=== PATIENT | male | born 1940 | race Caucasian/White ===

== ENCOUNTER 2017-10-17 08:51 | Inpatient (IN) | payer MEDICARE, OTHER ==
[2017-10-17] MEDS ORDERED: Sodium Chloride 0.9% 10 ML Syringe FLUSH PRN ×2 (09:07→11:59)
--- NOTE | 2017-10-17 09:09 | EDM.PDOC ---
ED HPI GENERAL MEDICAL PROBLEM - General Chief Complaint: Respiratory Problem Stated Complaint: BREATHING PROBLEMS Time Seen by Provider: 10/17/17 09:05 Source of Information: Reports: Patient History Limitations: Reports: No Limitations - History of Present Illness INITIAL COMMENTS - FREE TEXT/NARRATIVE: Patient comes into the emergency department with complaint of shortness of breath for 2 days. Patient has a long-standing history of congestive heart failure and hypertension. She is on home O2 does have a PICC line and receiving dobutamine daily injection. Patient states 2 days ago he was seen in the clinic and his Lasix was increased from 20 mg 3 times a day to 20 mg 4 times a day. Does not feel the increase in Lasix has helped his shortness of breath she is progressively got short of breath over the last 2 days. He has been taking her medication as prescribed by his primary care Dr. Mcarthur. He is on home oxygen but has noticed becoming more short of breath even while having supplemental oxygen. He denies Chest pain, dizziness, n/v, diarrhea, urinary concerns, or vision changes. Onset: Gradual Severity: Moderate Improves with: Reports: Immobilization Worsens with: Reports: Movement - Related Data Allergies Allergy/AdvReac Type Severity Reaction Status Date / Time No Known Allergies Allergy Verified 10/17/17 09:11 Home Meds: Home Meds Aspirin [Key Chewable Aspirin] 81 mg PO DAILY 10/31/14 [History] Docusate Sodium [Colace] 100 mg PO DAILY PRN 10/31/14 [History] Sennosides/Docusate Sodium [Senna-Docusate Sodium] 1 tab PO BID PRN 10/31/14 [ History] Albuterol [IJD: Albuterol HFA] 1 gm INH Q4H PRN #1 inhaler 04/01/16 [Rx] Tiotropium [Spiriva HandiHaler] 18 mcg INH DAILY #30 cap 04/01/16 [Rx] Levothyroxine 50 mcg PO ACBREAKFAST 12/18/16 [History] Omeprazole 20 mg PO DAILY PRN 12/18/16 [History] Midodrine 5 mg PO TID 06/30/17 [History] Potassium Chloride [Klor-Con M20] 20 meq PO DAILY 06/30/17 [History] Torsemide [Demadex] 20 mg PO ASDIRECTED 06/30/17 [History] predniSONE [Prednisone] 10 mg PO DAILY 10/17/17 [History] Past Medical History HEENT History: Reports: Cataract Cardiovascular History: Reports: CAD, Cardiomyopathy, Heart Failure, High Cholesterol, Hypertension, [place] Other Cardiovascular History: V TACH, Gastrointestinal History: Reports: Other (See Below) Other Gastrointestinal History: N & V, EARLY SATIETY, WEIGHT LOSS, Genitourinary History: Reports: Urinary Incontinence Other Genitourinary History: occassional Musculoskeletal History: Reports: Gout, Osteoarthritis Neurological History: Reports: None Hematologic History: Reports: Other (See Below) Other Hematologic History: VIT D DEF, Oncologic (Cancer) History: Reports: Prostate Dermatologic History: Reports: Other (See Below) Other Dermatologic History: roseaca - Past Surgical History Cardiovascular Surgical History: Reports: AICD, Coronary Artery Bypass GI Surgical History: Reports: Hernia, Abdominal Social & Family History - Caffeine Use Caffeine Use: Reports: Coffee ED ROS GENERAL - Review of Systems Review Of Systems: See Below Constitutional: Reports: No Symptoms HEENT: Reports: No Symptoms Respiratory: Reports: Shortness of Breath, Cough. Denies: Pleuritic Chest Pain , Sputum Cardiovascular: Reports: Dyspnea on Exertion, Edema. Denies: Blood Pressure Problem, Claudication, Lightheadedness, Orthopnea, Palpitations Endocrine: Reports: No Symptoms GI/Abdominal: Reports: No Symptoms : Reports: No Symptoms Musculoskeletal: Reports: No Symptoms Skin: Reports: No Symptoms Neurological: Reports: No Symptoms Psychiatric: Reports: No Symptoms Hematologic/Lymphatic: Reports: No Symptoms Immunologic: Reports: No Symptoms ED EXAM, GENERAL - Physical Exam Exam: See Below Exam Limited By: No Limitations General Appearance: Alert, WD/WN, No Apparent Distress Nose: Normal Inspection, Normal Mucosa Throat/Mouth: Normal Inspection, Normal Lips Head: Atraumatic, Normocephalic Neck: Normal Inspection, Supple, Non-Tender Respiratory/Chest: No Respiratory Distress, No Accessory Muscle Use, Decreased Breath Sounds, Crackles Cardiovascular: Tachycardia, Gallop/S4 Peripheral Pulses: 2+: Posterior Tibial (L), Posterior Tibial (R), 3+: Radial (L ), Radial (R) GI/Abdominal: Normal Bowel Sounds, Soft, Non-Tender, No Distention, No Abnormal Bruit Back Exam: Normal Inspection, Full Range of Motion Extremities: Normal Inspection, Normal Range of Motion Neurological: Alert, Oriented, Normal Gait Skin Exam: Warm, Dry, Intact, Normal Color, No Rash Lymphatic: No Adenopathy Course - Vital Signs Last Recorded V/S: Last Vital Signs Temp 36.0 C 10/17/17 11:20 Pulse 118 H 10/17/17 11:20 Resp 20 10/17/17 11:20 BP 107/87 10/17/17 11:20 Pulse Ox 96 10/17/17 11:20 - Orders/Labs/Meds Orders: Active Orders 24 hr Category Date Time Status Admission Status [Patient Status] [ADT] Routine ADT 10/17/17 11:32 Ordered EKG Documentation Completion [RC] STAT Care 10/17/17 09:07 Active Chest 2V [CR] Stat Exams 10/17/17 09:08 Taken Sodium Chloride 0.9% [Saline Flush] Med 10/17/17 09:07 Active 10 ml FLUSH ASDIRECTED PRN Peripheral IV Insertion Adult [OM.PC] Stat Oth 10/17/17 09:07 Ordered Medication Orders Sodium Chloride (Saline Flush) 10 ml FLUSH ASDIRECTED PRN PRN Reason: Keep Vein Open Labs: Laboratory Tests 10/17/17 10/17/17 10/17/17 Range/Units 09:25 09:25 09:30 WBC 10.1 H (4.0-10.0) x10^3/uL RBC 4.41 L (4.5-6.0) x10^6/uL Hgb 14.0 (14.0-18.0) g/dL Hct 42.3 (40.0-52.0) % MCV 95.9 H D (78.0-93.0) fL MCH 31.7 (26.0-32.0) pg MCHC 33.1 (32.0-36.0) g/dL RDW Coeff of Lorie 18.1 H (10.0-15.0) % Plt Count 155 D (130-400) x10^3/uL Add Manual Diff Yes Neutrophils % (Manual) 82 H (50-80) % Band Neutrophils % 3 (0-6) % Lymphocytes % (Manual) 8 L (25-50) % Monocytes % (Manual) 1 L (2-11) % Eosinophils % (Manual) 1 (0-4) % Metamyelocytes % 2 H (0) % Myelocytes % 2 H (0) % Blast Cells % 1 H (0) % Nucleated RBCs 1 (0-5) /100WBC Platelet Estimate Adequate Anisocytosis 1+ slight H Sodium 140 (136-145) mmol/L Potassium 4.0 (3.5-5.1) mmol/L Chloride 102 (98-107) mmol/L Carbon Dioxide 25 (21-32) mmol/L Anion Gap 17.0 (10-20) mmol/L BUN 34 H (7-18) mg/dL Creatinine 1.6 H (0.70-1.30) mg/dL Est Cr Clr Drug Dosing TNP Estimated GFR (MDRD) 42 Glucose 186 H (74-106) mg/dL Calcium 8.4 L (8.5-10.1) mg/dL Corrected Calcium 8.72 (8.5-10.1) mg/dL Total Bilirubin 1.1 H (0.2-1.0) mg/dL AST 36 (15-37) U/L ALT 51 (16-63) U/L Alkaline Phosphatase 96 (46-116) U/L POC Troponin I 0.17 H* (0.00-0.08) ng/mL NT-Pro-B Natriuret Pep 22516 H (<=450) pg/mL Total Protein 7.1 (6.4-8.2) g/dL Albumin 3.6 (3.4-5.0) g/dL Globulin 3.5 Albumin/Globulin Ratio 1.03 POC Result Comm Called critical res Meds: Medications Generic Name Dose Route Start Last Admin Trade Name Freq PRN Reason Stop Dose Admin Sodium Chloride 10 ml 10/17/17 09:07 Saline Flush FLUSH ASDIRECTED PRN Keep Vein Open Discontinued Medications Generic Name Dose Route Start Last Admin Trade Name Freq PRN Reason Stop Dose Admin Furosemide 40 mg 10/17/17 09:40 10/17/17 09:57 Lasix IV 10/17/17 09:41 40 mg ONETIME ONE Administration Departure - Departure Time of Disposition: 11:35 Disposition: Admitted As Inpatient 67 Clinical Impression: SOB (shortness of breath) CHF exacerbation Qualifiers: Heart failure type: combined systolic and diastolic Qualified Code(s): I50.43 - Acute on chronic combined systolic (congestive) and diastolic (congestive) heart failure - Discharge Information Referrals: Belkys Mcarthur DO [Primary Care Provider] - Forms: ED Department Discharge - My Orders Last 24 Hours: My Active Orders 10/17/17 09:07 EKG Documentation Completion [RC] STAT Sodium Chloride 0.9% [Saline Flush] 10 ml FLUSH ASDIRECTED PRN Peripheral IV Insertion Adult [OM.PC] Stat 10/17/17 09:08 Chest 2V [CR] Stat 10/17/17 11:32 Admission Status [Patient Status] [ADT] Routine - Assessment/Plan Last 24 Hours: My Active Orders 10/17/17 09:07 EKG Documentation Completion [RC] STAT Sodium Chloride 0.9% [Saline Flush] 10 ml FLUSH ASDIRECTED PRN Peripheral IV Insertion Adult [OM.PC] Stat 10/17/17 09:08 Chest 2V [CR] Stat 10/17/17 11:32 Admission Status [Patient Status] [ADT] Routine Assessment:: 1. increase shortness of breath Plan: 1. Labs completely ER results reviewed with patient and family 2. EKG completed results reviewed with patient and family 3. 40 mg IV Lasix was given in the ER 4. Abnormal labs showing patient's in worsening heart failure. Did contact Dr. Robert for possible admission into the acute care setting. Pt will be transferred to the medical floor for further medical management 5. Patient is hesitant for admission because a 50th anniversary libertarian him and his are hosting tomorrow. However he is agreement at this point
[2017-10-17] MEDS ORDERED: Furosemide 40 MG/4 ML VIAL IV ONE ×2 (09:40→15:13)
[2017-10-17 10:02] LABS: CHLORIDE,CL 102 mmol/L (98-107); SODIUM,NA 140 mmol/L (136-145)
[2017-10-17] MEDS ORDERED: Omeprazole 20 MG Cap.CR PO PRN (15:05)
[2017-10-17] MEDS ORDERED: Acetaminophen 325 MG Tab PO PRN ×2 (15:05→15:38)
[2017-10-17] MEDS ORDERED: Docusate Sodium 100 MG Cap PO PRN (15:05)
--- NOTE | 2017-10-17 16:11 | PCM.HP ---
H&P History of Present Illness - General Date of Service: 10/17/17 Admit Problem/Dx: Admission Diagnosis/Problem Admission Diagnosis/Problem CHF, Congestive heart failure Source of Information: Patient History Limitations: Reports: No Limitations - History of Present Illness Initial Comments - Free Text/Narative: History of present illness Patient is a 77-year-old male who has been followed by Dr. Belkys Mcarthur locally. He has seen Dr. Barboza of [facility] and he has also been following with [facility] congestive heart failure clinic. Patient has had coronary artery disease and heart failure since he was 66 when he had bypass surgery. Patient states that he was seen [facility] about 6 months ago and then just a few weeks ago. He has an implanted defibrillator and pacemaker. Reportedly his ejection fraction was 5% in 2017. After medication adjustment at the [facility], reportedly his ejection fraction went up to 15% and patient started gaining weight. Patient states that he wean about 160 at the end of 2017 and now is up to over 200. Patient states that he has been unable to climb stairs since last summer. He can walk around his yard but has to stop twice. This past week he has had orthopnea and PND, leg swelling and abdominal bloating. Patient increased his Demadex from 60 twice a day to 80 twice a day but this has not helped. Patient came to the emergency room because of shortness of breath. His records are not present for review from the [facility] they have been requested. Patient states that he has never had any chest pain he just "didn't feel well at the time his heart attacks. Have spells of dizziness which went away after he had his implantanted defibrillator. He doesn't think he had dizziness lately but he has felt that his heart has been going fast sometimes . Patient also has been having some periods of cold sweats which are unrelated to activity or, fast heartbeat or chest pain . Previous medical history COPD Remote prostate cancer treated with surgery 12 years ago History of smoking History of pneumonia in 2017 Left eye vitrectomy Umbilical hernia and inguinal hernia surgery Habits: Does not smoke drinks beer infrequently Family history: Remarkable Social history: Patient is retired, lives with his , has 2 children, his extended family and present for their 50 anniversary - Related Data Allergies/Adverse Reactions: Allergies Allergy/AdvReac Type Severity Reaction Status Date / Time No Known Allergies Allergy Verified 10/17/17 09:11 Home Medications: Home Meds Aspirin [Key Chewable Aspirin] 81 mg PO DAILY 10/31/14 [History] Docusate Sodium [Colace] 100 mg PO DAILY PRN 10/31/14 [History] Sennosides/Docusate Sodium [Senna-Docusate Sodium] 1 tab PO BID PRN 10/31/14 [ History] Albuterol [IJD: Albuterol HFA] 1 gm INH Q4H PRN #1 inhaler 04/01/16 [Rx] Tiotropium [Spiriva HandiHaler] 18 mcg INH DAILY #30 cap 04/01/16 [Rx] Levothyroxine 50 mcg PO ACBREAKFAST 12/18/16 [History] Omeprazole 20 mg PO DAILY PRN 12/18/16 [History] Midodrine 5 mg PO TID 06/30/17 [History] Potassium Chloride [Klor-Con M20] 20 meq PO DAILY 06/30/17 [History] Torsemide [Demadex] 60 mg PO BID@06/30/17 [History] Acetaminophen [Tylenol] 650 mg PO Q6H PRN 10/17/17 [History] Cholecalciferol (Vitamin D3) [Vitamin D3] 1,000 units PO DAILY 10/17/17 [History ] DOBUTamine/Dextrose 5%-Water [DOBUTamine in D5W 250 MG/250 ML] 250 mg IV DAILY@ 18 10/17/17 [History] Ipratropium [Atrovent 0.06% Nasal [place]] 2 sprays MARGARITO TID 10/17/17 [History] Non-Formulary Medication [NF Drug] 1 drop EYEBOTH QID 10/17/17 [History] Omeprazole Magnesium [Prilosec Otc] 20 mg PO DAILY PRN 10/17/17 [History] Thiamine [Vitamin B-1] 100 mg PO DAILY 10/17/17 [History] predniSONE [Prednisone] 10 mg PO DAILY 10/17/17 [History] Past Medical History HEENT History: Reports: Cataract Cardiovascular History: Reports: CAD, Cardiomyopathy, Heart Failure, High Cholesterol, Hypertension, [place] Other Cardiovascular History: V TACH, Gastrointestinal History: Reports: Other (See Below) Other Gastrointestinal History: N & V, EARLY SATIETY, WEIGHT LOSS, Genitourinary History: Reports: Urinary Incontinence Other Genitourinary History: occassional Musculoskeletal History: Reports: Gout, Osteoarthritis Neurological History: Reports: None Hematologic History: Reports: Other (See Below) Other Hematologic History: VIT D DEF, Oncologic (Cancer) History: Reports: Prostate Dermatologic History: Reports: Other (See Below) Other Dermatologic History: roseaca - Past Surgical History Cardiovascular Surgical History: Reports: AICD, Coronary Artery Bypass GI Surgical History: Reports: Hernia, Abdominal Social & Family History - Tobacco Use Smoking Status *Q: Unknown Ever Smoked - Caffeine Use Caffeine Use: Reports: Coffee H&P Review of Systems - Review of Systems: Review Of Systems: See Below General: Reports: Other (Has had several spells of feeling warm and cold) HEENT: Reports: No Symptoms Pulmonary: Reports: Shortness of Breath Cardiovascular: Reports: Palpitations Gastrointestinal: Reports: No Symptoms Genitourinary: Reports: No Symptoms Musculoskeletal: Reports: No Symptoms Skin: Reports: No Symptoms Psychiatric: Reports: No Symptoms Neurological: Reports: No Symptoms Hematologic/Lymphatic: Reports: No Symptoms Immunologic: Reports: No Symptoms Exam - Vital Signs Vital Signs: Last Vital Signs Temp 97.4 F 10/17/17 13:51 Pulse 110 H 10/17/17 13:51 Resp 20 10/17/17 13:51 BP 107/84 10/17/17 13:51 Pulse Ox 97 10/17/17 13:51 Weight: 218 lb 6 oz - Exam General: Alert HEENT: Conjunctiva Clear, Mucosa Moist & [place] Neck: Supple, Trachea Midline Lungs: Clear to Auscultation, Normal Respiratory Effort Cardiovascular: Regular Rate, Regular Rhythm, Gallop/S3 GI/Abdominal Exam: Normal Bowel Sounds, No Distention Back Exam: Normal Inspection Extremities: Normal Inspection, No Pedal Edema, Other (PICC site right upper arm - no redness, warmth, tenderness present) Skin: Warm, Dry Neurological: Cranial Nerves Intact Neuro Extensive - Mental Status: Alert, Oriented x3, Normal Cognition, Memory Intact Neuro Extensive - Motor, Sensory, Reflexes: Normal Gait Psychiatric: Alert, Normal Affect, Normal Mood - Patient Data Lab Results Last 24 hrs: Laboratory Results - last 24 hr 10/17/17 10/17/17 10/17/17 Range/Units 09:25 09:25 09:30 WBC 10.1 H (4.0-10.0) x10^3/uL RBC 4.41 L (4.5-6.0) x10^6/uL Hgb 14.0 (14.0-18.0) g/dL Hct 42.3 (40.0-52.0) % MCV 95.9 H D (78.0-93.0) fL MCH 31.7 (26.0-32.0) pg MCHC 33.1 (32.0-36.0) g/dL RDW Coeff of Lorie 18.1 H (10.0-15.0) % Plt Count 155 D (130-400) x10^3/uL Add Manual Diff Yes Neutrophils % (Manual) 82 H (50-80) % Band Neutrophils % 3 (0-6) % Lymphocytes % (Manual) 8 L (25-50) % Monocytes % (Manual) 1 L (2-11) % Eosinophils % (Manual) 1 (0-4) % Metamyelocytes % 2 H (0) % Myelocytes % 2 H (0) % Blast Cells % 1 H (0) % Nucleated RBCs 1 (0-5) /100WBC Platelet Estimate Adequate Anisocytosis 1+ slight H Sodium 140 (136-145) mmol/L Potassium 4.0 (3.5-5.1) mmol/L Chloride 102 (98-107) mmol/L Carbon Dioxide 25 (21-32) mmol/L Anion Gap 17.0 (10-20) mmol/L BUN 34 H (7-18) mg/dL Creatinine 1.6 H (0.70-1.30) mg/dL Est Cr Clr Drug Dosing TNP Estimated GFR (MDRD) 42 Glucose 186 H (74-106) mg/dL Calcium 8.4 L (8.5-10.1) mg/dL Corrected Calcium 8.72 (8.5-10.1) mg/dL Total Bilirubin 1.1 H (0.2-1.0) mg/dL AST 36 (15-37) U/L ALT 51 (16-63) U/L Alkaline Phosphatase 96 (46-116) U/L POC Troponin I 0.17 H* (0.00-0.08) ng/mL NT-Pro-B Natriuret Pep 32638 H (<=450) pg/mL Total Protein 7.1 (6.4-8.2) g/dL Albumin 3.6 (3.4-5.0) g/dL Globulin 3.5 Albumin/Globulin Ratio 1.03 POC Result Comm Called critical res Result Diagrams: 10/17/17 09:25 10/18/17 08:49 EKG INTERPRETATION EKG Date: 10/17/17 EKG Interpretation Comments: 100% pacemaker *Q Meaningful Use (ADM) - VTE *Q VTE Mechanical Contraindications *Q: Congestive Heart Failure (placed on lovenox ) - VTE Risk Assess *Q Each Risk Factor Represents 1 Point: Congestive heart failure (CHF), Abnormal Pulmonary Function (COPD) Total Score 1 Point Risk Factors: 2 Each Risk Factor Represents 2 Points: Age 60 - 74 Years Total Score 2 Point Risk Factors: 2 - Problem List (1) CHF exacerbation SNOMED Code(s): 02283619 ICD Code: I50.9 - HEART FAILURE, UNSPECIFIED Status: Acute Current Visit : Yes Qualifiers: Heart failure type: combined systolic and diastolic Qualified Code(s): I50.43 - Acute on chronic combined systolic (congestive) and diastolic ( congestive) heart failure (2) Ventricular tachycardia SNOMED Code(s): 03732644, 69794579 ICD Code: I47.2 - VENTRICULAR TACHYCARDIA Status: Acute Current Visit: No Problem List Initiated/Reviewed/Updated: Yes Orders Last 24hrs: Active Orders 24 hr Category Date Time Status Admission Status [Patient Status] [ADT] Routine ADT 10/17/17 11:32 Active Patient Status [ADT] Routine ADT 10/17/17 11:55 Active Patient Status [ADT] Routine ADT 10/17/17 11:59 Active Daily Weight [Height and Weight] [RC] DAILY Care 10/17/17 15:10 Active Notify Provider Vital Signs [RC] 06,10,14,18,22,02 Care 10/17/17 12:01 Active Oxygen Therapy [RC] 08,20 Care 10/17/17 11:55 Active Oxygen Therapy [RC] PRN Care 10/17/17 11:59 Active VTE/DVT Education [RC] .PRN Care 10/17/17 11:55 Active VTE/DVT Education [RC] .PRN Care 10/17/17 11:59 Active Vital Signs [RC] 06,10,14,18,22,02 Care 10/17/17 11:59 Active Vital Signs [RC] Q4H Care 10/17/17 11:55 Active 2 Gram Sodium Diet [DIET] Diet 10/17/17 Lunch Active Chest 2V [CR] Stat Exams 10/17/17 09:08 Taken BASIC METABOLIC PANEL,BMP [CHEM] AM Lab 10/18/17 05:11 Ordered CULTURE BLOOD [BC] Stat Lab 10/17/17 15:11 Ordered CULTURE BLOOD [BC] Stat Lab 10/17/17 15:11 Ordered MAGNESIUM [CHEM] AM Lab 10/18/17 05:11 Ordered TROPONIN I [CHEM] Routine Lab 10/17/17 14:00 Ordered Acetaminophen [Tylenol] Med 10/17/17 15:38 Active 650 mg PO Q6H PRN Albuterol [Proventil Neb Soln] Med 10/17/17 20:00 Active 2.5 mg INH Q4H PRN Aspirin Med 10/18/17 08:00 Active 81 mg PO DAILY Cholecalciferol (Vitamin D3) [Vitamin D3] Med 10/18/17 08:00 Active 1,000 units PO DAILY DOBUTamine/Dextrose 5%-Water [DOBUTamine in D5W 250 MG/ Med 10/17/17 18:00 Pending 250 ML] 250 mg IV DAILY@18 Docusate Sodium [Colace] Med 10/17/17 11:59 Active 100 mg PO BID PRN Docusate Sodium [Colace] Med 10/17/17 15:05 Active 100 mg PO DAILY PRN Docusate Sodium/Sennosides [Senna Plus] Med 10/17/17 15:05 Active 1 tab PO BID PRN Enoxaparin [Lovenox] Med 10/18/17 08:00 Active 40 mg SUBCUT DAILY Ipratropium [Atrovent 0.06% Nasal [place]] Med 10/17/17 20:00 Pending 2 sprays MARGARITO TID Levothyroxine [Synthroid] Med 10/18/17 07:00 Active 50 mcg PO ACBREAKFAST Midodrine Med 10/17/17 20:00 Active 5 mg PO TID Omeprazole Med 10/17/17 15:05 Active 20 mg PO DAILY PRN Potassium Chloride [Klor-Con] Med 10/18/17 08:00 Active 20 meq PO DAILY Sodium Chloride 0.9% [Saline Flush] Med 10/17/17 09:07 Active 10 ml FLUSH ASDIRECTED PRN Sodium Chloride 0.9% [Saline Flush] Med 10/17/17 11:59 Active 10 ml FLUSH ASDIRECTED PRN Thiamine [Vitamin B-1] Med 10/18/17 08:00 Active 100 mg PO DAILY Tiotropium [Spiriva HandiHaler] Med 10/18/17 08:00 Active 18 mcg INH DAILY Torsemide [Demadex] Med 10/18/17 08:00 Active 60 mg PO BID@08,15 predniSONE Med 10/18/17 08:00 Active 10 mg PO DAILY Blood Culture x2 Reflex Set [OM.PC] Stat Oth 10/17/17 15:10 Ordered Peripheral IV Insertion Adult [OM.PC] Stat Oth 10/17/17 09:07 Ordered Saline Lock Insert [OM.PC] Routine Oth 10/17/17 11:59 Ordered Resuscitation Status Routine Resus Stat 10/17/17 11:54 Ordered Medication Orders Acetaminophen (Tylenol) 650 mg PO Q6H PRN PRN Reason: Pain Albuterol (Proventil Neb Soln) 2.5 mg INH Q4H PRN PRN Reason: Cough Aspirin (Aspirin) 81 mg PO DAILY [facility] Cholecalciferol (Vitamin D3) 1,000 units PO DAILY [facility] Docusate Sodium (Colace) 100 mg PO BID PRN PRN Reason: Constipation Docusate Sodium (Colace) 100 mg PO DAILY PRN PRN Reason: Constipation Enoxaparin Sodium (Lovenox) 40 mg SUBCUT DAILY [facility] Levothyroxine Sodium (Synthroid) 50 mcg PO ACBREAKFAST [facility] Midodrine (Midodrine) 5 mg PO TID [facility] Non-Formulary Medication (Dobutamine/Dextrose 5%-Water [Dobutamine In D5w 250 Mg /250 Ml]) 250 mg IV DAILY@18 [facility] Non-Formulary Medication (Ipratropium [Atrovent 0.06% Nasal [place]]) 2 sprays MARGARITO TID [facility] Omeprazole (Omeprazole) 20 mg PO DAILY PRN PRN Reason: Heartburn Potassium Chloride (Klor-Con) 20 meq PO DAILY [facility] Prednisone (Prednisone) 10 mg PO DAILY [facility] Senna/Docusate Sodium (Senna Plus) 1 tab PO BID PRN PRN Reason: Constipation Sodium Chloride (Saline Flush) 10 ml FLUSH ASDIRECTED PRN PRN Reason: Keep Vein Open Sodium Chloride (Saline Flush) 10 ml FLUSH ASDIRECTED PRN PRN Reason: Keep Vein Open Thiamine HCl (Vitamin B-1) 100 mg PO DAILY [facility] Tiotropium [place] (Spiriva Handihaler) 18 mcg INH DAILY [facility] Torsemide (Demadex) 60 mg PO BID@08,15 [facility] Assessment/Plan Comment:: 1. CHF: I discussed pt with Dr Marte, [place] [facility], He was able to access most recent note from [facility]. The therapy is gong to be medical, although they are possibly considering LVAD in 3 months. Previous [facility] notes from Jan, Feb 2017 when pt presented in cardaic shock indicated that they thought hiospice care was appropriate.. As pt responded to Lasix 40 mg earlier today, w/o hypotension and with some diureses, will continue with same for now. Dr Marte believes elevated tropinin,likely due to CHF and I concur 2. V tach: pt has some short spurts of vt( 3 beats) and then some other wide beats preceded by pacer spikes. Dr Marte reviewed these, believes they are fusion beats and had no further recommendations for for medical therapy. Pt is asx, I believe, will continue with telemetry. Pt states if defibrillator fails, he owuld like external debrillation and resuscitation efforts. 3. Cold and hot spells- etiology unclear; could represent BP instability, will check Blood cultures to R/O SBE from PICC lines 4.Code status: pt ,I believe, understands the gravity of his situation. he would be willing to go back to [facility] only if they could offer something that would help him . For now he and family are ok with trying IV diuretics here. We can revisit this when his most recent notes from [facility] arrive.
[2017-10-17] MEDS: DOBUTAMINE IV SCH (18:01)
[2017-10-17] MEDS: DEXTROSE IV SCH (18:01)
[2017-10-17] MEDS: Midodrine 2.5 MG Tab PO SCH (19:55)
[2017-10-17] MEDS: prednisoLONE Acetate 1% Ophth Susp 5 ML Bottle**OWN MED EYEBOTH SCH (19:56)
[2017-10-17] MEDS ORDERED: Albuterol 0.083% 2.5 MG/3 ML Neb Soln INH PRN (20:00)
[2017-10-17] MEDS ORDERED: LORazepam 0.5 MG Tab PO STA (23:16)
[2017-10-17] MEDS ORDERED: Non-Formulary Medication 1 Each (Omeprazole Magnesium [Prilosec Otc] 20 MG) PO PRN (23:20)
[2017-10-18] MEDS: Furosemide 40 MG/4 ML VIAL IV SCH ×3 (05:58→14:52)
[2017-10-18] MEDS: Levothyroxine 50 MCG Tab PO SCH (06:03)
[2017-10-18] MEDS: predniSONE 10 MG Tab PO SCH (07:55)
[2017-10-18] MEDS: Torsemide 20 MG Tab PO SCH ×2 (07:55→14:52)
[2017-10-18] MEDS: Potassium Chloride 20 MEQ Packet PO SCH (07:55)
[2017-10-18] MEDS: Tiotropium Inhaler 18 MCG Inhalation Powder Cap Kit of 5 INH SCH (07:56)
[2017-10-18] MEDS: Enoxaparin 40 MG/0.4 ML Syringe SUBCUT SCH (07:56)
[2017-10-18] MEDS: prednisoLONE Acetate 1% Ophth Susp 5 ML Bottle**OWN MED EYEBOTH SCH ×4 (07:56→21:11)
[2017-10-18] MEDS: Aspirin 81 MG Tab.Chew PO SCH (07:56)
[2017-10-18] MEDS: Midodrine 2.5 MG Tab PO SCH ×3 (07:56→21:12)
[2017-10-18] MEDS ORDERED: Cholecalciferol (Vitamin D3) 1,000 Unit Tab PO SCH (08:00)
[2017-10-18] MEDS ORDERED: Thiamine 100 MG Tab PO SCH (08:00)
[2017-10-18] MEDS ORDERED: Ondansetron 4 MG/2 ML SDV IVPUSH ONE (09:20)
[2017-10-18 10:04] LABS: ANION GAP 17.1 mmol/L (10-20)
--- NOTE | 2017-10-18 10:53 | PCM.PN ---
- General Info Date of Service: 10/18/17 Admission Dx/Problem (Free Text): CHF Subjective Update: Pt denies chest pain, he had an episode of vomiting small amount of food this am after eating eggs and toast; Pt slept a bit after lorazepam.25 last night.Breathing maybve somewhat better. Pt had short spurts of vt yesterday w/o symptoms - Patient Data Vitals - Most Recent: Last Vital Signs Temp 97.6 F 10/18/17 06:00 Pulse 122 H 10/18/17 09:15 Resp 32 H 10/18/17 09:15 BP 114/68 10/18/17 09:15 Pulse Ox 97 10/18/17 09:15 Weight - Most Recent: 216 lb 12 oz I&O - Last 24 Hours: Intake & Output 10/17/17 10/18/17 10/18/17 22:59 06:59 14:59 Intake Total 950 750 Output Total 750 1150 Balance 200 -400 Lab Results Last 24 Hours: Laboratory Results - last 24 hr 10/17/17 10/18/17 Range/Units 16:00 08:49 Sodium 136 (136-145) mmol/L Potassium 4.1 (3.5-5.1) mmol/L Chloride 99 (98-107) mmol/L Carbon Dioxide 24 (21-32) mmol/L Anion Gap 17.1 (10-20) mmol/L BUN 35 H (7-18) mg/dL Creatinine 1.6 H (0.70-1.30) mg/dL Est Cr Clr Drug Dosing 44.39 mL/min Estimated GFR (MDRD) 42 Glucose 173 H (74-106) mg/dL Calcium 8.6 (8.5-10.1) mg/dL Magnesium 2.2 (1.8-2.4) mg/dL Troponin I 0.116 H* (<=0.056) ng/mL Med Orders - Current: Current Medications Acetaminophen (Tylenol) 650 mg PO Q6H PRN PRN Reason: Pain Albuterol (Proventil Neb Soln) 2.5 mg INH Q4H PRN PRN Reason: Cough Aspirin (Aspirin) 81 mg PO DAILY [facility] Last Admin: 10/18/17 07:56 Dose: 81 mg Cholecalciferol (Vitamin D3) 1,000 units PO DAILY [facility] Last Admin: 10/18/17 07:55 Dose: 1,000 units Docusate Sodium (Colace) 100 mg PO BID PRN PRN Reason: Constipation Docusate Sodium (Colace) 100 mg PO DAILY PRN PRN Reason: Constipation Enoxaparin Sodium (Lovenox) 40 mg SUBCUT DAILY [facility] Last Admin: 10/18/17 07:56 Dose: 40 mg Furosemide (Lasix) 40 mg IV TID@06,10,14 [facility] Last Admin: 10/18/17 10:15 Dose: 40 mg Levothyroxine Sodium (Synthroid) 50 mcg PO ACBREAKFAST [facility] Last Admin: 10/18/17 06:03 Dose: 50 mcg Midodrine (Midodrine) 5 mg PO TID [facility] Last Admin: 10/18/17 07:56 Dose: 5 mg Dobutamine In D5w 2000 Mcg/Ml 370 Ml Bag Own Med 0 mg IV DAILY@18 [facility] Last Admin: 10/17/17 18:01 Dose: 250 mg Non-Formulary Medication (Ipratropium [Atrovent 0.06% Nasal [place]]) 2 sprays MARGARITO TID [facility] Omeprazole (Omeprazole) 20 mg PO DAILY PRN PRN Reason: Heartburn Potassium Chloride (Klor-Con) 20 meq PO DAILY [facility] Last Admin: 10/18/17 07:55 Dose: 20 meq Prednisolone Acetate (Pred Forte 1% Ophth Susp) 0 ml EYEBOTH QID [facility] Last Admin: 10/18/17 07:56 Dose: 1 drop Prednisone (Prednisone) 10 mg PO DAILY [facility] Last Admin: 10/18/17 07:55 Dose: 10 mg Senna/Docusate Sodium (Senna Plus) 1 tab PO BID PRN PRN Reason: Constipation Sodium Chloride (Saline Flush) 10 ml FLUSH ASDIRECTED PRN PRN Reason: Keep Vein Open Sodium Chloride (Saline Flush) 10 ml FLUSH ASDIRECTED PRN PRN Reason: Keep Vein Open Last Admin: 10/18/17 05:58 Dose: 10 ml Thiamine HCl (Vitamin B-1) 100 mg PO DAILY [facility] Last Admin: 10/18/17 07:55 Dose: 100 mg Tiotropium [place] (Spiriva Handihaler) 18 mcg INH DAILY [facility] Last Admin: 10/18/17 07:56 Dose: 18 mcg Torsemide (Demadex) 60 mg PO BID@08,15 [place] Last Admin: 10/18/17 07:55 Dose: 60 mg Discontinued Medications Acetaminophen (Tylenol) 350 mg PO Q6H PRN PRN Reason: Pain Furosemide (Lasix) 40 mg IV ONETIME ONE Stop: 10/17/17 09:41 Last Admin: 10/17/17 09:57 Dose: 40 mg Furosemide (Lasix) 40 mg IV ONETIME ONE Stop: 10/17/17 15:14 Last Admin: 10/17/17 15:30 Dose: 40 mg Lorazepam (Ativan) 0.25 mg PO ONETIME STA Stop: 10/17/17 23:17 Last Admin: 10/17/17 23:33 Dose: 0.25 mg Non-Formulary Medication (Omeprazole Magnesium [Prilosec Otc]) 20 mg PO DAILY PRN PRN Reason: Indigestion Ondansetron HCl (Zofran) 4 mg IVPUSH ONETIME ONE Stop: 10/18/17 09:21 Last Admin: 10/18/17 09:30 Dose: 4 mg - Exam Quality Assessment: Supplemental Oxygen General: Alert Lungs: Clear to Auscultation Cardiovascular: Regular Rate GI/Abdominal Exam: Normal Bowel Sounds, Soft, Non-Tender, No Distention (a little sweaty and anxious after emesis) - Problem List & Annotations (1) CHF exacerbation SNOMED Code(s): 55216248 Code(s): I50.9 - HEART FAILURE, UNSPECIFIED Status: Acute Current Visit: Yes Qualifiers: Heart failure type: combined systolic and diastolic Qualified Code(s): I50.43 - Acute on chronic combined systolic (congestive) and diastolic ( congestive) heart failure (2) Ventricular tachycardia SNOMED Code(s): 05251996, 05378788 Code(s): I47.2 - VENTRICULAR TACHYCARDIA Status: Acute Current Visit: No - Problem List Review Problem List Initiated/Reviewed/Updated: Yes - My Orders Last 24 Hours: My Active Orders 10/17/17 11:54 Resuscitation Status Routine 10/17/17 11:55 Patient Status [ADT] Routine Oxygen Therapy [RC] 08,20 VTE/DVT Education [RC] .PRN Vital Signs [RC] Q4H 10/17/17 11:59 Patient Status [ADT] Routine Oxygen Therapy [RC] PRN VTE/DVT Education [RC] .PRN Vital Signs [RC] 06,10,14,18,22,02 Docusate Sodium [Colace] 100 mg PO BID PRN Sodium Chloride 0.9% [Saline Flush] 10 ml FLUSH ASDIRECTED PRN Saline Lock Insert [OM.PC] Routine 10/17/17 12:01 Notify Provider Vital Signs [RC] 06,10,14,18,22,02 10/17/17 15:05 Docusate Sodium [Colace] 100 mg PO DAILY PRN Docusate Sodium/Sennosides [Senna Plus] 1 tab PO BID PRN Omeprazole 20 mg PO DAILY PRN 10/17/17 15:10 Daily Weight [Height and Weight] [RC] DAILY Blood Culture x2 Reflex Set [OM.PC] Stat 10/17/17 15:38 Acetaminophen [Tylenol] 650 mg PO Q6H PRN 10/17/17 16:00 CULTURE BLOOD [BC] Stat 10/17/17 16:05 CULTURE BLOOD [BC] Stat 10/17/17 18:00 DOBUTamine/Dextrose 5%-Water [DOBUTamine in D5W 250 MG/250 ML] 0 mg IV DAILY@ 18 10/17/17 20:00 Albuterol [Proventil Neb Soln] 2.5 mg INH Q4H PRN Ipratropium [Atrovent 0.06% Nasal [place]] 2 sprays MARGARITO TID Midodrine 5 mg PO TID prednisoLONE Acetate [Pred Forte 1% Ophth Susp] 0 ml EYEBOTH QID 10/17/17 Lunch 2 Gram Sodium Diet [DIET] 10/18/17 06:00 Furosemide [Lasix] 40 mg IV TID@06,10,14 10/18/17 07:00 Levothyroxine [Synthroid] 50 mcg PO ACBREAKFAST 10/18/17 08:00 Aspirin 81 mg PO DAILY Cholecalciferol (Vitamin D3) [Vitamin D3] 1,000 units PO DAILY Enoxaparin [Lovenox] 40 mg SUBCUT DAILY Potassium Chloride [Klor-Con] 20 meq PO DAILY Thiamine [Vitamin B-1] 100 mg PO DAILY Tiotropium [Spiriva HandiHaler] 18 mcg INH DAILY Torsemide [Demadex] 60 mg PO BID@08,15 predniSONE 10 mg PO DAILY 10/18/17 10:45 TROPONIN I [CHEM] Routine - Plan Plan:: !. CHF: Weight is done 2 lbs and breathing maybe better. He is tolerating small pushes of Iv lasix w/o hypotension so far. ! am concerned that vomiting reflects further decrease in cardiac output. I was able to speak with pt's hydraulic design engineer, Dr Mandy Yin at [facility] and she concurs. She is willing to take the pt in transfer for re-evaluation for LVAD but she is still questioning his suitability for this procedure. She concurs that palliative care is a reasonable alternative and that the choice is Mr Givens's. Pepe is concerned that the low CO indicates his life may be measured in days, not week . This information has been conveyed to Mr and Mrs Estevez with RN and sister in attendance. I suggested that if he wishes to go to [facility], we should transfer today. If not then , we would arrange palliative are here.
--- NOTE | 2017-10-18 11:21 | PCM.SN ---
- Free Text/Narrative Note: 11:20 Pt, erin decided against transfer to [facility], they understand we will continue diuretic therapy to help with breathing. Hospice consult will be obtained.
[2017-10-18] MEDS ORDERED: LORazepam 0.5 MG Tab PO PRN (11:22)
[2017-10-18] MEDS ORDERED: Ondansetron 4 MG/2 ML SDV IVPUSH PRN ×2 (17:55→18:12)
[2017-10-18] MEDS: DOBUTAMINE IV SCH (18:04)
[2017-10-18] MEDS: DEXTROSE IV SCH (18:04)
[2017-10-18] MEDS ORDERED: Morphine 2 MG/ML Syringe IVPUSH PRN (18:27)
[2017-10-18] MEDS ORDERED: LORazepam 2 MG/ML SDV IVPUSH PRN (18:29)
[2017-10-19] MEDS: Furosemide 40 MG/4 ML VIAL IV SCH (06:12)
[2017-10-19] MEDS: Levothyroxine 50 MCG Tab PO SCH (06:21)
[2017-10-19] MEDS ORDERED: Torsemide 20 MG Tab PO SCH (08:00)
[2017-10-19 08:01] LABS: ANION GAP 17.5 mmol/L (10-20)
[2017-10-19] MEDS ORDERED: Furosemide 100 MG in Sodium Chloride 0.9% 90 ML IV SCH ×2 (08:30→08:45)
[2017-10-19] MEDS: Enoxaparin 40 MG/0.4 ML Syringe SUBCUT SCH (08:41)
--- NOTE | 2017-10-19 09:01 | PN ---
Progress Note for FREIDA SHAVER Date: 10/19/2017 Room #: VM.218 SUBJECTIVE: This is hospital day #3 on a 77-year-old admitted with a severe systolic heart failure exacerbation. He has lost about 2 pounds. He states he is feeling a little better, but it does not take much to get him short of breath, even just getting out of the chair. He has had no chest pain. No cough. No fever. No chills. He has gained quite a bit of weight in his abdominal area over the past few weeks. He has had a trip to the [facility]. They had increased his torsemide for 5 days, but then the fluid came back and his creatinine had increased now up to 1.6. He has been on IV Lasix 40 mg, 3 times a day and his oral torsemide. Creatinine worsened further today up to 2.3. He states he is eating a little better. Yesterday morning he did vomit. He did get changed over to code 3 status. He has been on dobutamine 5 mcg since last February. He is also still on prednisone tapering doses down to 10 mg daily since July for lung problems, which was felt to be recurrent aspirations by the painter hand. He has even had a feeding tube in the past and he really just does not want to go down that road again. OBJECTIVE: Vital Signs: His temperature is 97.6, weight 98.3 kg, pulse 100, blood pressure 105/80, respiratory rate 20, and O2 97% on 2.5 L. General: He is in no acute distress. Heart: Regular rate and rhythm with gallop rhythm. Lungs: Lung sounds decreased over the right base, otherwise clear on the left and upper lung. No crackles appreciated. Abdomen: Distended, nontender. Extremities: Warm and dry. He has trace edema to the ankles. Neuro: Mental status: He is alert and orientated x3. LABORATORY DATA: Lab work does show his white count 11.2, hemoglobin 12.8, and platelets 124. Sodium 134, potassium 4.5, chloride 99, bicarb 22, BUN 57, creatinine 2.3, glucose 113, and calcium 8.4. ASSESSMENT: 1. Acute on chronic systolic heart failure exacerbation. His EF with the dobutamine was up to about 15% last fall. Given his other medical comorbidities, he is not felt to be a strong candidate for an LVAD. He is on palliative inotropes. Given his underlying possibility of some slow ventricular tachycardia, I am reluctant to increase the dobutamine. He is also on midodrine. Today, I will stop the IV Lasix and change him over to continuous infusion 10 mg/hour. We will also do bladder scan and place a Reynolds if needed, as he reports he is urinating just small amounts, but frequently. 2. Hypothyroidism. TSH today is pending. 3. DVT prophylaxis due to renal insufficiency. I will decrease Lovenox to 30. 4. Thrombocytopenia, mild, probably due to heart failure from congestive hepatosplenomegaly. 5. Acute renal failure, probably due to cardiorenal given his sodium is also decreasing. 6. Bee-JC-vyiwqwtts [place]. Elevated troponins likely in the setting of heart failure. Given low blood pressure, he is unable to tolerate beta-blockers or SIMONE inhibitors. 7. Underlying chronic obstructive pulmonary disease. I feel this is stable. No exacerbation. He has a Spiriva inhaler ordered. 8. Recent lung nodules resolving by x-ray and CT. He has had recurrent problems with this and he has even seen Pulmonary. We will continue the prednisone taper. He will go down to 5 mg later this week. 9. Gastroesophageal reflux disease. He has Prilosec available. PLAN: At this point, the patient will continue acute cares. He has been taken off telemetry, as it had continued to alarm. I did discuss with him if his ICD was to fire that we would use his magnet if he was getting continuous shocks and not doing well. He is okay with this. He feels it will only fire about twice. He had elected yesterday not to transfer out to the [facility], so is here for palliative measures. We will try the Lasix drip today and place a Reynolds if needed. Lab work will be repeated tomorrow. Potassium is replaced at 4.5, magnesium at 2.2. I am going to hold off on his potassium supplements. Could consider starting Aldactone if blood pressure allows. MKA: 10/19/2017 08:28:45 MODL: 10/19/2017 08:52:59 /[id number]
[2017-10-19] MEDS: predniSONE 10 MG Tab PO SCH (09:02)
[2017-10-19] MEDS: Aspirin 81 MG Tab.Chew PO SCH (09:02)
[2017-10-19] MEDS: Midodrine 2.5 MG Tab PO SCH ×3 (09:02→20:06)
[2017-10-19] MEDS: prednisoLONE Acetate 1% Ophth Susp 5 ML Bottle**OWN MED EYEBOTH SCH ×4 (09:03→20:08)
[2017-10-19] MEDS: Tiotropium Inhaler 18 MCG Inhalation Powder Cap Kit of 5 INH SCH (09:04)
[2017-10-19] MEDS: Enoxaparin 30 MG/0.3 ML Syringe SUBCUT SCH (09:10)
[2017-10-19] MEDS: Potassium Chloride 20 MEQ Packet PO SCH (09:24)
[2017-10-19] MEDS: IPRATROPIUM NAS SCH ×5 (11:12→20:07)
[2017-10-19] MEDS: DOBUTAMINE IV SCH (17:55)
[2017-10-19] MEDS: DEXTROSE IV SCH (17:55)
[2017-10-19] MEDS: Furosemide 100 MG in Sodium Chloride 0.9% 100 ML IV SCH (20:15)
[2017-10-19] MEDS: Docusate Sodium 100 MG Cap PO PRN (20:26)
[2017-10-20] MEDS: Levothyroxine 50 MCG Tab PO SCH (06:05)
[2017-10-20 07:34] LABS: ANION GAP 17.3 mmol/L (10-20)
[2017-10-20] MEDS: Aspirin 81 MG Tab.EC PO SCH (07:50)
[2017-10-20] MEDS: Midodrine 2.5 MG Tab PO SCH ×3 (07:50→19:34)
[2017-10-20] MEDS: predniSONE 10 MG Tab PO SCH (07:51)
[2017-10-20] MEDS: prednisoLONE Acetate 1% Ophth Susp 5 ML Bottle**OWN MED EYEBOTH SCH ×4 (07:51→19:34)
[2017-10-20] MEDS: Tiotropium Inhaler 18 MCG Inhalation Powder Cap Kit of 5 INH SCH (07:52)
[2017-10-20] MEDS: IPRATROPIUM NAS SCH ×3 (07:55→19:34)
[2017-10-20] MEDS: Enoxaparin 30 MG/0.3 ML Syringe SUBCUT SCH (07:56)
[2017-10-20] MEDS: Furosemide 100 MG in Sodium Chloride 0.9% 100 ML IV SCH ×2 (08:19→19:35)
[2017-10-20] MEDS: Docusate Sodium 100 MG Cap PO PRN (08:23)
[2017-10-20] MEDS: Potassium Chloride 10 MEQ Tab.ER PO SCH ×2 (08:24→18:14)
[2017-10-20] MEDS ORDERED: Spironolactone 25 MG Tab PO ONE ×2 (13:26→16:10)
[2017-10-20] MEDS ORDERED: FLONASE SENSIMIST NASBOTH PRN (14:50)
--- NOTE | 2017-10-20 15:34 | PN ---
Progress Note for FREIDA SHAVER Date: 10/20/2017 Room #: VM.218 This is a 77-year-old on acute cares for heart failure. Device rep came out today. He has had 10 episodes of burst pacing out of ventricular tachycardia just today, so decision was made not to turn off his ICD. However, if he does fire his ICD and is not able to be resuscitated as he is a full code 3, no CPR, then we would use the magnet to prevent further shocks. He has had 50 nonsustained runs of ventricular tachycardia over 5 seconds like 7 seconds since 10/09. He is BiV pacing at 90%. 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 Full report will be sent to [facility]. I will update the patient later today. MKA: 10/20/2017 14:13:51 MODL: 10/20/2017 14:24:11 /[id number]
--- NOTE | 2017-10-20 15:34 | PN ---
Progress Note for FREIDA SHAVER Date: 10/20/2017 Room #: VM.218 SUBJECTIVE: A 77-year-old, admitted for an acute systolic heart failure exacerbation on 10/17/2017. The patient was switched over to a Lasix drip yesterday. He has diuresed now -700. He is feeling better. He can sleep without being short of breath, but he is still sleeping in the chair. He has been up in the [place] with the nurses. He did not feel lightheaded or dizzy, but he felt weak. He has not had any chest pain. He is not having any new cough, no fever. He did have creatinine up to 2.3 yesterday, now it is down to 1.8. Bladder scan showed that he was emptying appropriately. Conversation was held with EP this morning. Device rep will come out to see if he is appropriately BiV pacing. He was at 94% on 10/11/2017, it went down in [place]. Otherwise, he has not had any ICD shocks. OBJECTIVE: Vital Signs: His temperature this morning is 98.1, pulse 77, blood pressure 100/68, respiratory rate 20, and O2 of 97% on 2.5 L. His weight was 98.3 kg. General: He is in no acute distress. Heart: Regular rate and rhythm with tachycardia. Respiratory: Lungs sounds are decreased especially over the right base with some crackles noted there. Abdomen: Mildly distended, but nontender. Extremities: Warm and dry. He has 1+ edema at the ankle. Mental Status: He is alert. He is orientated x3. LABORATORY DATA: Lab work does show his kidney function again to be 1.8, BUN 52, GFR is 39.4. Glucose 120, calcium 7.8, sodium 138, chloride 101, bicarb 23. White count 9.7, hemoglobin 12.6, platelets 75 which are down from 124. TSH yesterday was 2.5. ASSESSMENT: 1. Acute on chronic systolic heart failure exacerbation with known ischemic cardiomyopathy. Ejection fraction down to 15% last fall. He is status post biventricular pacemaker also in last fall. I contacted EP. We will get his ICD portion turned off by the device rep today, so that he does not get any inadvertent shocks given the goals of care are palliative. We will also ensure that he is pacing appropriately. If not, we will have to further decide on other treatments there. He continues on palliative inotropes, dobutamine 5 mcg/kg per minute. I am hesitating to increase that given the risk for ventricular tachycardia. 2. Hypokalemia. We will restart him on potassium supplements. 3. Acute renal failure, likely due to cardiorenal syndrome. We will continue the IV Lasix. Things seem to be improving. 4. Hypothyroidism, treated. 5. DVT prophylaxis. Due to low platelets, I am going to hold on further Lovenox. We will get him on some SCDs and support hose. 6. Thrombocytopenia, mild. Could be from congestive hepatosplenomegaly. We will do some liver testing tomorrow. 7. Recent [id number] myocardial infarction due to heart failure. He does have known underlying history of coronary disease. He is not on any beta-blockers due to hypotension. No SIMONE inhibitors due to hypotension and renal failure. Otherwise, he is on aspirin and no statin currently. Given likely limited life expectancy, we will avoid starting new agents. 8. Chronic obstructive pulmonary disease. He is on Spiriva. 9. History of aspiration. We talked to him about having speech therapist see him here. That is at least what came out of his consult at the [facility]. He is agreeable. 10.Gastroesophageal reflux disease. He is on Prilosec. 11.Constipation. He has stool softeners available. We will go ahead and get that scheduled. PLAN: At this point, the patient will continue acute cares. He will continue with IV Lasix drip, currently around 10 mg/hour. We will repeat lab work tomorrow. We will replace potassium. His magnesium level has been 2.2. We could consider giving a dose of metolazone or even starting Aldactone given that his blood pressure had improved slightly later in the day to 144/65. I did elect for a small dose 12.5 mg of Aldactone. Device rep to come out and shut up the ICD portion. He is not on telemetry currently and this is because he is getting palliative treatments. Biventricular pacer to continue. We will repeat lab work tomorrow. SEVENA: 10/20/2017 13:25:58 MODL: 10/20/2017 13:51:09 /[id number]
[2017-10-20] MEDS: DOBUTAMINE IV SCH (18:13)
[2017-10-20] MEDS: DEXTROSE IV SCH (18:13)
[2017-10-21] MEDS: Furosemide 100 MG in Sodium Chloride 0.9% 100 ML IV SCH ×2 (05:12→15:17)
[2017-10-21] MEDS: Levothyroxine 50 MCG Tab PO SCH (06:21)
[2017-10-21] MEDS: IPRATROPIUM NAS SCH ×3 (07:51→20:19)
[2017-10-21] MEDS: Potassium Chloride 10 MEQ Tab.ER PO SCH ×2 (07:51→17:50)
[2017-10-21] MEDS: Aspirin 81 MG Tab.EC PO SCH (07:51)
[2017-10-21] MEDS: Docusate Sodium 100 MG Cap PO SCH (07:51)
[2017-10-21] MEDS: Midodrine 2.5 MG Tab PO SCH ×3 (07:51→20:19)
[2017-10-21] MEDS: predniSONE 10 MG Tab PO SCH (07:51)
[2017-10-21] MEDS: prednisoLONE Acetate 1% Ophth Susp 5 ML Bottle**OWN MED EYEBOTH SCH ×4 (07:52→20:19)
[2017-10-21] MEDS: Tiotropium Inhaler 18 MCG Inhalation Powder Cap Kit of 5 INH SCH (07:52)
[2017-10-21 08:23] LABS: ANION GAP 14.4 mmol/L (10-20)
--- NOTE | 2017-10-21 09:27 | PCM.PN ---
- General Info Date of Service: 10/21/17 Subjective Update: 77 yo male hospital day #5 for CHF exacerbation in the setting of severe underlying systolic heart failure. States he is feeling "ok." Has been sleeping ok but is sleeping in the chair. Does not feel comfortable yet laying flat in the bed. Notes his feet have become more swollen over the past 1-2 days. Shortness of breath is gradually improving though. No chest pain, cough, fever, or chills. Walked in the hallways x1 the past 2 days without any issues but was not able to go far. Also notes he has not had a bowel movement since admission. Takes stool softeners PRN at home when this occurs. - Review of Systems General: Reports: No Symptoms HEENT: Reports: No Symptoms Pulmonary: Reports: Shortness of Breath Cardiovascular: Reports: Edema Gastrointestinal: Reports: No Symptoms Genitourinary: Reports: No Symptoms Musculoskeletal: Reports: No Symptoms Skin: Reports: No Symptoms Neurological: Reports: No Symptoms - Patient Data Vitals - Most Recent: Last Vital Signs Temp 36.7 C 10/21/17 05:36 Pulse 77 10/21/17 05:36 Resp 19 10/21/17 05:36 BP 108/82 10/21/17 05:36 Pulse Ox 96 10/21/17 07:18 Weight - Most Recent: 99.11 kg I&O - Last 24 Hours: Intake & Output 10/20/17 10/21/17 10/21/17 22:59 06:59 14:59 Intake Total 120 1200 480 Output Total 375 2000 Balance -255 -800 480 Lab Results Last 24 Hours: Laboratory Results - last 24 hr 10/21/17 10/21/17 Range/Units 07:38 07:38 WBC 10.1 H (4.0-10.0) x10^3/uL RBC 4.33 L (4.5-6.0) x10^6/uL Hgb 14.0 (14.0-18.0) g/dL Hct 41.5 (40.0-52.0) % MCV 95.8 H (78.0-93.0) fL MCH 32.3 H (26.0-32.0) pg MCHC 33.7 (32.0-36.0) g/dL RDW Coeff of Lorie 18.5 H (10.0-15.0) % Plt Count 66 L (130-400) x10^3/uL Add Manual Diff Yes Neutrophils % (Manual) 67 (50-80) % Band Neutrophils % 4 (0-6) % Lymphocytes % (Manual) 14 L (25-50) % Monocytes % (Manual) 11 (2-11) % Eosinophils % (Manual) 1 (0-4) % Myelocytes % 3 H (0) % Nucleated RBCs 1 (0-5) /100WBC Platelet Estimate Marked dec L Sodium 139 (136-145) mmol/L Potassium 3.4 L (3.5-5.1) mmol/L Chloride 102 (98-107) mmol/L Carbon Dioxide 26 (21-32) mmol/L Anion Gap 14.4 (10-20) mmol/L BUN 30 H (7-18) mg/dL Creatinine 1.3 (0.70-1.30) mg/dL Est Cr Clr Drug Dosing 54.63 mL/min Estimated GFR (MDRD) 54 Glucose 105 (74-106) mg/dL Calcium 7.5 L (8.5-10.1) mg/dL Corrected Calcium 8.22 L (8.5-10.1) mg/dL Total Bilirubin 2.4 H (0.2-1.0) mg/dL AST 992 H (15-37) U/L ALT 2928 H (16-63) U/L Alkaline Phosphatase 107 (46-116) U/L Total Protein 6.4 (6.4-8.2) g/dL Albumin 3.1 L (3.4-5.0) g/dL Globulin 3.3 Albumin/Globulin Ratio 0.94 Scott Results Last 24 Hours: Microbiology 10/17/17 16:05 Aerobic Blood Culture - Preliminary Blood - Venous - Lab Draw NO GROWTH AFTER 3 DAYS Anaerobic Blood Culture - Preliminary NO GROWTH AFTER 3 DAYS 10/17/17 16:00 Aerobic Blood Culture - Preliminary Blood - Venous NO GROWTH AFTER 3 DAYS Anaerobic Blood Culture - Preliminary NO GROWTH AFTER 3 DAYS Med Orders - Current: Current Medications Acetaminophen (Tylenol) 650 mg PO Q6H PRN PRN Reason: Pain Albuterol (Proventil Neb Soln) 2.5 mg INH Q4H PRN PRN Reason: Cough Aspirin (Halfprin) 81 mg PO DAILY [facility] Last Admin: 10/21/17 07:51 Dose: 81 mg Docusate Sodium (Colace) 100 mg PO BID PRN PRN Reason: Constipation Last Admin: 10/20/17 08:23 Dose: 100 mg Docusate Sodium (Colace) 100 mg PO DAILY [facility] Last Admin: 10/21/17 07:51 Dose: 100 mg Furosemide 100 mg/ Sodium (Chloride) 110 mls @ 10 mls/hr IV TITRATE [facility]; Protocol Last Admin: 10/21/17 05:12 Dose: 9.09 mg/hr, 10 mls/hr Levothyroxine Sodium (Synthroid) 50 mcg PO ACBREAKFAST [facility] Last Admin: 10/21/17 06:21 Dose: 50 mcg Lorazepam (Ativan) 0.5 mg PO BEDTIME PRN PRN Reason: Anxiety Lorazepam (Ativan) 0.25 mg IVPUSH Q4H PRN PRN Reason: Anxiety Midodrine (Midodrine) 5 mg PO TID [facility] Last Admin: 10/21/17 07:51 Dose: 5 mg Morphine Sulfate (Morphine) 1 - 2 mg IVPUSH Q30M PRN PRN Reason: Shortness of Breath Dobutamine In D5w 2000 Mcg/Ml 370 Ml Bag Own Med 0 mg IV DAILY@18 [facility] Last Admin: 10/20/17 18:13 Dose: 250 mg Ipratropium [ Atrovent 0.06% Nasal [place]] 0 sprays MARGARITO TID [facility] Last Admin: 10/21/17 07:51 Dose: Not Given Flonase Sensimist ( (Own Supply)) 1 spray NASBOTH DAILY PRN PRN Reason: Congestion Last Admin: 10/20/17 18:14 Dose: 1 spray Omeprazole (Omeprazole) 20 mg PO DAILY PRN PRN Reason: Heartburn Ondansetron HCl (Zofran) 4 mg IVPUSH Q4H PRN PRN Reason: Nausea Potassium Chloride (Klor-Con 10) 20 meq PO BIDMEALS [facility] Last Admin: 10/21/17 07:51 Dose: 20 meq Prednisolone Acetate (Pred Forte 1% Ophth Susp) 0 ml EYEBOTH QID [facility] Last Admin: 10/21/17 07:52 Dose: 1 drop Prednisone (Prednisone) 10 mg PO DAILY [facility] Last Admin: 10/21/17 07:51 Dose: 10 mg Senna/Docusate Sodium (Senna Plus) 1 tab PO BID PRN PRN Reason: Constipation Last Admin: 10/20/17 08:23 Dose: 1 tab Sodium Chloride (Saline Flush) 10 ml FLUSH ASDIRECTED PRN PRN Reason: Keep Vein Open Last Admin: 10/18/17 21:15 Dose: 10 ml Sodium Chloride (Saline Flush) 10 ml FLUSH ASDIRECTED PRN PRN Reason: Keep Vein Open Last Admin: 10/18/17 05:58 Dose: 10 ml Tiotropium [place] (Spiriva Handihaler) 18 mcg INH DAILY [facility] Last Admin: 10/21/17 07:52 Dose: 18 mcg Discontinued Medications Acetaminophen (Tylenol) 350 mg PO Q6H PRN PRN Reason: Pain Aspirin (Aspirin) 81 mg PO DAILY [facility] Last Admin: 10/19/17 09:02 Dose: 81 mg Cholecalciferol (Vitamin D3) 1,000 units PO DAILY [facility] Last Admin: 10/18/17 07:55 Dose: 1,000 units Docusate Sodium (Colace) 100 mg PO DAILY PRN PRN Reason: Constipation Enoxaparin Sodium (Lovenox) 40 mg SUBCUT DAILY [facility] Last Admin: 10/19/17 08:41 Dose: Not Given Enoxaparin Sodium (Lovenox) 30 mg SUBCUT DAILY [facility] Last Admin: 10/20/17 07:56 Dose: 30 mg Furosemide (Lasix) 40 mg IV ONETIME ONE Stop: 10/17/17 09:41 Last Admin: 10/17/17 09:57 Dose: 40 mg Furosemide (Lasix) 40 mg IV ONETIME ONE Stop: 10/17/17 15:14 Last Admin: 10/17/17 15:30 Dose: 40 mg Furosemide (Lasix) 40 mg IV TID@06,10,14 [facility] Last Admin: 10/19/17 06:12 Dose: 40 mg Furosemide 100 mg/ Sodium (Chloride) 100 mls @ 10 mls/hr IV TITRATE [facility] Furosemide 100 mg/ Sodium (Chloride) 100 mls @ 10 mls/hr IV TITRATE [facility] Stop: 10/19/17 19:59 Last Admin: 10/19/17 10:02 Dose: 10 mg/hr, 10 mls/hr Lorazepam (Ativan) 0.25 mg PO ONETIME [facility] Stop: 06/30/18 23:17 Last Admin: 10/17/17 23:33 Dose: 0.25 mg Non-Formulary Medication (Omeprazole Magnesium [Prilosec Otc]) 20 mg PO DAILY PRN PRN Reason: Indigestion Ondansetron HCl (Zofran) 4 mg IVPUSH ONETIME ONE Stop: 10/18/17 09:21 Last Admin: 10/18/17 09:30 Dose: 4 mg Ondansetron HCl (Zofran) 4 mg IVPUSH Q8H PRN PRN Reason: Nausea Last Admin: 10/18/17 18:04 Dose: 4 mg Potassium Chloride (Klor-Con) 20 meq PO DAILY [facility] Last Admin: 10/19/17 09:24 Dose: Not Given Spironolactone (Aldactone) 12.5 mg PO ONETIME ONE Stop: 10/20/17 13:27 Last Admin: 10/20/17 17:40 Dose: Not Given Spironolactone (Aldactone) 12.5 mg PO ONETIME ONE Stop: 10/20/17 16:11 Last Admin: 10/20/17 16:31 Dose: 12.5 mg Thiamine HCl (Vitamin B-1) 100 mg PO DAILY [facility] Last Admin: 10/18/17 07:55 Dose: 100 mg Torsemide (Demadex) 60 mg PO BID@,15 [facility] Last Admin: 10/18/17 14:52 Dose: 60 mg Torsemide (Demadex) 60 mg PO BID@08,15 [facility] - Exam General: Alert, Cooperative, No Acute Distress HEENT: Mucous Membr. Moist/[place] Neck: Supple, Trachea Midline, No Thyromegaly. No: Lymphadenopathy Lungs: Normal Respiratory Effort, Crackles (mcc up the lung duval bilaterally) Cardiovascular: Regular Rate, Regular Rhythm, No Murmurs GI/Abdominal Exam: Normal Bowel Sounds, Soft, Non-Tender, No Organomegaly, No Distention, No Mass Extremities: Normal Inspection, Normal Capillary Refill, Pedal Edema (1+ to the knee bilaterally) Peripheral Pulses: 2+: Radial (L), Radial (R) Skin: Warm, Dry, Intact - Problem List & Annotations (1) CHF exacerbation SNOMED Code(s): 86321463 Code(s): I50.9 - HEART FAILURE, UNSPECIFIED Status: Acute Current Visit: Yes Qualifiers: Heart failure type: combined systolic and diastolic Qualified Code(s): I50.43 - Acute on chronic combined systolic (congestive) and diastolic ( congestive) heart failure (2) Systolic heart failure SNOMED Code(s): 736046930 Code(s): I50.20 - UNSPECIFIED SYSTOLIC (CONGESTIVE) HEART FAILURE Status: Chronic Current Visit: No (3) Ventricular tachycardia SNOMED Code(s): 86438670, 17721306 Code(s): I47.2 - VENTRICULAR TACHYCARDIA Status: Chronic Current Visit: No (4) ICD (implantable cardioverter-defibrillator) in place SNOMED Code(s): 208388079 Code(s): Z95.810 - PRESENCE OF AUTOMATIC (IMPLANTABLE) CARDIAC DEFIBRILLATOR Status: Chronic Current Visit: No (5) Ischemic heart disease SNOMED Code(s): 440411964 Code(s): I25.9 - CHRONIC ISCHEMIC HEART DISEASE, UNSPECIFIED Status: Chronic Current Visit: No (6) Hypokalemia SNOMED Code(s): 30720577 Code(s): E87.6 - HYPOKALEMIA Status: Acute Current Visit: No (7) Thrombocytopenia SNOMED Code(s): 118764251 Code(s): D69.6 - THROMBOCYTOPENIA, UNSPECIFIED Status: Acute Current Visit: Yes (8) Elevated liver enzymes SNOMED Code(s): 635519385 Code(s): R74.8 - ABNORMAL LEVELS OF OTHER SERUM ENZYMES Status: Acute Current Visit: Yes (9) Acute kidney injury SNOMED Code(s): 85319917 Code(s): N17.9 - ACUTE KIDNEY FAILURE, UNSPECIFIED Status: Acute Current Visit: Yes (10) Constipation SNOMED Code(s): 70859443 Code(s): K59.00 - CONSTIPATION, UNSPECIFIED Status: Chronic Current Visit : Yes Qualifiers: Constipation type: unspecified constipation type Qualified Code(s): K59.00 - Constipation, unspecified (11) Hypothyroidism SNOMED Code(s): 37137758 Code(s): E03.9 - HYPOTHYROIDISM, UNSPECIFIED Status: Chronic Current Visit: Yes Qualifiers: Hypothyroidism type: acquired Qualified Code(s): E03.9 - Hypothyroidism, unspecified (12) COPD (chronic obstructive pulmonary disease) SNOMED Code(s): 40372960 Code(s): J44.9 - CHRONIC OBSTRUCTIVE PULMONARY DISEASE, UNSPECIFIED Status : Chronic Current Visit: Yes Qualifiers: COPD type: unspecified COPD Qualified Code(s): J44.9 - Chronic obstructive pulmonary disease, unspecified (13) GERD (gastroesophageal reflux disease) SNOMED Code(s): 334651255 Code(s): K21.9 - GASTRO-ESOPHAGEAL REFLUX DISEASE WITHOUT ESOPHAGITIS Status: Chronic Current Visit: Yes Qualifiers: Esophagitis presence: esophagitis presence not specified Qualified Code(s) : K21.9 - Gastro-esophageal reflux disease without esophagitis - Problem List Review Problem List Initiated/Reviewed/Updated: Yes - Assessment Assessment:: 77 yo male hospital day #5 for CHF exacerbation. Is symptomatically much better with a negative fluid balance and improvement in renal function but his weight is up slightly today and he notes a mild increase in leg swelling. - Plan Plan:: #1 Acute combined systolic and diastolic heart failure #2 Chronic systolic heart failure with most recent EF of 15% - Patient is feeling better and his net balance is negative. Labs also looking better. However, his weight and swelling are up slightly. - He has really had a good response to the lasix infusion. Given the increase in weight and swelling, would not make any decreases today. Given his net negative balance and other symptom improvement, would not make any increases today either. - Continue lasix infusion at the same rate. - BP is tolerating this fine. Creatinine is significantly improved today. #3 Ventricular tachycardia #[address] - Some discussion yesterday of shutting of his ICD but this was note done in light of frequent episodes of v-tach. - He is off telemetry as this will not exchange specialist. #5 Hypokalemia - K 3.4 today. - Continue PO supplementation. #6 Thrombocytopenia - Platelets continue to decrease. - In light of elevated liver enzymes today, this is most likely secondary to hepatic congestion in the setting of his heart failure. - He is not on heparin or lovenox at this time. - Will recheck tomorrow. #7 Elevated liver enzymes - As above, likely related to hepatic congestion from CHF. - Will recheck tomorrow. #8 Acute kidney injury - Creatinine normal at 1.3 today. - Will recheck tomorrow. #9 Constipation - Schedule senna plus in addition to the colace. - If no BM today, will do a dose of miralax. #10 Hypothyroidism #11 COPD #12 GERD - Home medications continued. Patient will remain on acute today as he is still requiring the lasix infusion. Although today he will reach 96 hours of admission, he is improving and does not require transfer to a higher level of care. Additionally, his PCP has been in touch with [facility] frequently and they also did not feel he required a higher level of care. He has SCD's for VTE prophylaxis; no pharmacologic VTE prophylaxis in the setting of his thrombocytopenia. His code status is DNR/DNI.
[2017-10-21] MEDS: DOBUTAMINE IV SCH (17:51)
[2017-10-21] MEDS: DEXTROSE IV SCH (17:51)
[2017-10-22] MEDS: Furosemide 100 MG in Sodium Chloride 0.9% 100 ML IV SCH ×2 (01:40→13:46)
[2017-10-22] MEDS: Levothyroxine 50 MCG Tab PO SCH (06:27)
[2017-10-22 07:17] LABS: ANION GAP 21.2 mmol/L (10-20)
[2017-10-22] MEDS: Docusate Sodium 100 MG Cap PO SCH (08:08)
[2017-10-22] MEDS: Aspirin 81 MG Tab.EC PO SCH (08:08)
[2017-10-22] MEDS: Potassium Chloride 10 MEQ Tab.ER PO SCH ×2 (08:09→17:16)
[2017-10-22] MEDS: Midodrine 2.5 MG Tab PO SCH ×3 (08:10→21:11)
[2017-10-22] MEDS: predniSONE 10 MG Tab PO SCH (08:11)
[2017-10-22] MEDS: prednisoLONE Acetate 1% Ophth Susp 5 ML Bottle**OWN MED EYEBOTH SCH ×4 (08:12→21:10)
[2017-10-22] MEDS: Tiotropium Inhaler 18 MCG Inhalation Powder Cap Kit of 5 INH SCH (08:12)
[2017-10-22] MEDS: IPRATROPIUM NAS SCH ×3 (08:15→21:13)
[2017-10-22] MEDS ORDERED: Metolazone 2.5 MG Tab PO ONE (08:23)
[2017-10-22] MEDS: DEXTROSE IV SCH (17:19)
[2017-10-22] MEDS: DOBUTAMINE IV SCH (17:19)
--- NOTE | 2017-10-22 18:55 | PN ---
Progress Note for FREIDA SHAVER Date: 10/22/2017 Room #: VM.218 SUBJECTIVE: This is hospital day #6 on a 77-year-old admitted for an acute on chronic combined systolic and diastolic heart failure exacerbation. The patient was showing some improvement in diuresis, however, that decreased yesterday. They charted quite a bit of intake, but he reports that he really did not drink that much. He did finally have a bowel movement. He is still short of breath even though he is taking his pills per nursing. He was up and having a shower, but required some assistance. He is continued on the dobutamine infusions. Lab work yesterday included liver testing which showed his ALT up to 2900. He feels like his leg swelling is less today, but his extremities are cool. He really does not appear to be perfusing mentally. He is mentating okay, appears a little depressed, talked about us writing him off as he was recommended to go on hospice before. Otherwise, he denies any chest pain or pain anywhere. He did get the dose of Aldactone on Thursday. He has been on potassium supplements. OBJECTIVE: Vital Signs: Temperature 97.6, pulse 89, blood pressure 93/75, respiratory rate 26, O2 94% on 2 L, but a lot of times his oxygen is coming off, weight is 99.4 kg and on admission he was 99.0 kg. General: He is in no acute distress, but he is appearing pale. Extremities: Cool, especially in the feet. I was not able to palpate a pulse. He has just trace ankle edema. Heart: Regular rate and rhythm. No murmurs appreciated, but tones are distant. Neck: He does have JVD on his neck. Abdomen: Distended, but nontender. Lungs: He has decreased air entry over both bases, but no crackles appreciated. Mental Status: He is alert, he is orientated x3. LABORATORY DATA: Lab work shows his white count to go up to 14.1, hemoglobin 14.2, platelets 68. Sodium 135, potassium 4.2, chloride 99, bicarb 19, BUN 38, creatinine 1.8, it was 1.3 yesterday, glucose 115. Calcium corrected 8.26, albumin 3.3, ALT down slightly to 2797, AST down to 938, bilirubin actually up to 3.3. ASSESSMENT AND PLAN: 1. Acute on chronic combo systolic and diastolic heart failure, really hear end-stage terminal heart failure, which was discussed with the patient and his extensively. They are getting a new infusion for dobutamine, but I had even talked to the [facility] and they did not encourage an increase in infusion rate, so they do not even know how this came about. This apparently is coming tomorrow and certainly we can try that because he is on palliative inotropes at this point. asked about going home, what we do if the fluid comes back, how do we get it off. I talked to them that this would be going home with hospice. Essentially, he would be going home to pass away or staying here for comfort measures. At this point, it is probably a matter of days to weeks and the [facility] felt that given his situation that would likely be the case as well. At this point, we did give him a dose of metolazone this morning. We did a bladder scan to ensure he was emptying and his postvoid was less than 150 and he had voided at least 400. I did explain that all efforts at this point are palliative and very likely transition will be made to comfort cares or end of life cares tomorrow. He is not requiring any pain management. 2. Recurrent episodes of ventricular tachycardia. I did call the device rep, [phone]. Jelani will be out tomorrow. He can shut off shock therapy, but leave the pacemaker function in place. 3. Acute renal failure due to cardiorenal syndrome. Sodium is trending back down, creatinine is going up. I believe these are all signs of poor perfusion and end-stage heart failure. 4. 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 5. Thrombocytopenia, also worsening likely due to heart failure. He is off Lovenox. 6. Hypothyroidism, treated. 7. Adjustment disorder due to medical illness for heart failure. Support, encourage, mental health social worker is involved. 8. Bpp-YQ-polninnoi myocardial infarction due to heart failure. He is on palliative treatments. 9. Chronic obstructive pulmonary disease, that is stable without exacerbation. 10.History of aspiration. He is on a diet of his choosing. He is focusing more comfort on this point, so restrictive diets are not in his best interest. 11.Gastroesophageal reflux disease, on Prilosec. 12.Constipation, resolved. The plan at this point, the patient will continue acute cares. We will continue the Lasix infusion. We will get things in place and likely transition him over to comfort cares tomorrow. No further lab work will be done. Biventricular pacing to continue, but we will shut off shock therapy. Burst pacing will still take place. Magnet is available if he were to go in a terminal rhythm. MKA: 10/22/2017 17:36:20 MODL: 10/22/2017 18:52:53 /[id number]
[2017-10-23] MEDS: Furosemide 100 MG in Sodium Chloride 0.9% 100 ML IV SCH (01:47)
[2017-10-23] MEDS: Levothyroxine 50 MCG Tab PO SCH (06:35)
[2017-10-23] MEDS ORDERED: Metolazone 2.5 MG Tab PO SCH (08:15)
[2017-10-23] MEDS: Docusate Sodium 100 MG Cap PO SCH (08:18)
[2017-10-23] MEDS: Aspirin 81 MG Tab.EC PO SCH (08:19)
[2017-10-23] MEDS: Potassium Chloride 10 MEQ Tab.ER PO SCH (08:20)
[2017-10-23] MEDS: Midodrine 2.5 MG Tab PO SCH ×2 (08:21→11:01)
[2017-10-23] MEDS: prednisoLONE Acetate 1% Ophth Susp 5 ML Bottle**OWN MED EYEBOTH SCH ×2 (08:22→11:02)
[2017-10-23] MEDS: Tiotropium Inhaler 18 MCG Inhalation Powder Cap Kit of 5 INH SCH (08:32)
[2017-10-23] MEDS: predniSONE 10 MG Tab PO SCH (09:17)
[2017-10-23] MEDS: IPRATROPIUM NAS SCH ×2 (09:22→11:03)
[2017-10-23 10:33] VITALS: BP 99/60
[2017-10-23] MEDS ORDERED: predniSONE 5 MG Tab PO SCH ×2 (11:00)
[2017-10-23] MEDS ORDERED: predniSONE 10 MG Tab PO SCH (11:00)
--- NOTE | 2017-10-24 02:52 | DISCH ---
PRIMARY DISCHARGE DIAGNOSIS: Acute on chronic combo systolic and diastolic heart failure with ejection fraction of 15%. SECONDARY DISCHARGE DIAGNOSES: 1. Acute hepatitis secondary to congestive hepatomegaly and possibly low cardiac output with LFTs, ALT up to 1999. 2. Recurrent episodes of ventricular tachycardia due to heart failure. 3. Acute renal failure due to cardiorenal syndrome. Creatinine 1.8 yesterday. 4. Thrombocytopenia, likely due to worsening heart failure. 5. Hypothyroidism. 6. Adjustment disorder due to medical illness and heart failure. 7. Non ST-elevation myocardial infarction, on palliative treatments. 8. Chronic obstructive pulmonary disease, chronic, stable without exacerbation. 9. History of aspiration. The patient following a diet of his choosing. He has had a feeding tube in the past for this problem with recurrent aspiration pneumonias, currently on tapering dose of prednisone down to 5 mg daily. 10.Gastroesophageal reflux disease. 11.Constipation. REASON FOR ADMISSION: On the date of admission, this 77-year-old male came in with significant weight gain, shortness of breath, orthopnea. He was diuresed with IV Lasix. He was eventually changed over to a Lasix drip. He did go down a couple pounds but then regained it. However, on discharge, his abdomen was slightly less distended. His leg swelling had improved. He felt like he was feeling better and breathing better. He did get a dose of metolazone as well as Aldactone. His potassium was replaced orally. Otherwise, extensive discussion was had with him and his , [facility] and [facility]. Given his poor prognosis, the patient elected to stay locally in [place] and try palliative treatments. ICD device was interrogated. He was burst pacing out of ventricular tachycardia on Thursday. It was eventually turned to the lowest setting to avoid any shocks for him. Otherwise, his perfusion seemed a little bit better on the day of transfer over to swing bed. He was emptying his bladder okay. Bladder scans were not elevated, so therefore Reynolds was not placed. DISCHARGE PLANS/INSTRUCTIONS: He is going over to swing bed for end of life cares. If he does stabilize to the point where he can return home with his on hospice, that is also a possibility. No lab work will be checked unless his situation changes. Otherwise, he is not having any pain, but morphine is available for pain. He did have some nausea at one point, so Zofran will be available, and Ativan will be available for sleep and any anxiety. PHYSICAL EXAMINATION: Discharging Vitals: The patient's blood pressure is 91/71, his weight 99.2 kg, temperature 97.3, pulse 84, respiratory rate 18, O2 at 99 on 2 L. General: He is in no acute distress. He is mildly pale. Heart: Regular rate and rhythm with distant tones, but no murmur. Respiratory: Lungs sounds are clear to auscultation bilaterally without crackles or wheezes. Extremities: Warm and dry. He has trace edema. Abdomen: Mildly distended but nontender. Mental Status: He is alert and orientated x3. MKA: 10/23/2017 17:10:32 MODL: 10/24/2017 02:42:05 /[id number]
== END 2017-10-23 11:31 | disposition swing bed (61) | DRG 280 ==
LOC: VM.ED 08:51 → VM.MS 11:32
PROVIDERS: ADMIT Internal Medicine; ATTEND Internal Medicine
DX: I11.0 Hypertensive heart disease with heart failure (principal); I13.0 Hypertensive heart and chronic kidney disease with heart failure and stage 1 through stage 4 chronic kidney disease, or unspecified chronic kidney disease; I21.4 Non-ST elevation (NSTEMI) myocardial infarction; I50.43 Acute on chronic combined systolic (congestive) and diastolic (congestive) heart failure; I42.9 Cardiomyopathy, unspecified; I47.2 Ventricular tachycardia; B17.9 Acute viral hepatitis, unspecified; N17.9 Acute kidney failure, unspecified; I25.10 Atherosclerotic heart disease of native coronary artery without angina pectoris; E78.00 Pure hypercholesterolemia, unspecified; I25.5 Ischemic cardiomyopathy; E78.5 Hyperlipidemia, unspecified; R06.02 Shortness of breath; J44.9 Chronic obstructive pulmonary disease, unspecified; E03.9 Hypothyroidism, unspecified; R13.12 Dysphagia, oropharyngeal phase; K59.00 Constipation, unspecified; M10.9 Gout, unspecified; R11.2 Nausea with vomiting, unspecified; R63.4 Abnormal weight loss; R05 Cough; E55.9 Vitamin D deficiency, unspecified; L71.9 Rosacea, unspecified; R06.00 Dyspnea, unspecified; R60.9 Edema, unspecified; R00.0 Tachycardia, unspecified; K21.9 Gastro-esophageal reflux disease without esophagitis; K76.1 Chronic passive congestion of liver; D69.59 Other secondary thrombocytopenia; F43.20 Adjustment disorder, unspecified; E87.6 Hypokalemia; I50.84 End stage heart failure; N18.9 Chronic kidney disease, unspecified; R32 Unspecified urinary incontinence; M19.90 Unspecified osteoarthritis, unspecified site; R91.8 Other nonspecific abnormal finding of lung field; H26.9 Unspecified cataract; I25.2 Old myocardial infarction; Z66 Do not resuscitate; Z85.46 Personal history of malignant neoplasm of prostate; Z95.810 Presence of automatic (implantable) cardiac defibrillator; Z95.1 Presence of aortocoronary bypass graft; Z90.79 Acquired absence of other genital organ(s); Z87.891 Personal history of nicotine dependence; Z99.81 Dependence on supplemental oxygen; Z79.82 Long term (current) use of aspirin; Z79.52 Long term (current) use of systemic steroids; Z79.899 Other long term (current) drug therapy; Z51.5 Encounter for palliative care
CPT/HCPCS: 36415; 51798; 71046; 80048; 80053; 83735; 83880; 84443; 84484; 85025; 87040; 92526-GN; 92610-GN; 93005; 94760; 96374; 97162-GP; 99284-GF; 99285; A9270-GY; J1650; J1940; J2405; J7050

== ENCOUNTER 2017-10-23 09:47 | Inpatient (IN) | payer MEDICARE, OTHER ==
[2017-10-23] MEDS: Furosemide 100 MG in Sodium Chloride 0.9% 100 ML IV SCH ×2 (12:16→21:53)
[2017-10-23] MEDS ORDERED: Sodium Chloride 0.9% 10 ML Syringe FLUSH PRN ×4 (15:24→16:58)
[2017-10-23] MEDS ORDERED: Albuterol 0.083% 2.5 MG/3 ML Neb Soln INH PRN ×2 (15:25→16:58)
[2017-10-23] MEDS ORDERED: Omeprazole 20 MG Cap.CR PO PRN ×2 (15:27→16:58)
[2017-10-23] MEDS ORDERED: Acetaminophen 325 MG Tab PO PRN ×2 (15:27→16:58)
[2017-10-23] MEDS ORDERED: LORazepam 0.5 MG Tab PO PRN ×2 (15:28→16:58)
[2017-10-23] MEDS ORDERED: LORazepam 2 MG/ML SDV IVPUSH PRN ×2 (15:29→16:58)
[2017-10-23] MEDS ORDERED: Ondansetron 4 MG/2 ML SDV IVPUSH PRN ×2 (15:29→16:58)
[2017-10-23] MEDS ORDERED: Morphine 2 MG/ML Syringe IVPUSH PRN ×2 (15:31→16:58)
[2017-10-23] MEDS ORDERED: FLONASE SENSIMIST NASBOTH PRN ×2 (15:32→16:58)
[2017-10-23] MEDS ORDERED: Furosemide 100 MG in Sodium Chloride 0.9% 100 ML IV SCH (16:58)
[2017-10-23] MEDS: prednisoLONE Acetate 1% Ophth Susp 5 ML Bottle**OWN MED EYEBOTH SCH ×2 (16:58→20:20)
[2017-10-23] MEDS ORDERED: WATER IV SCH (18:00)
[2017-10-23] MEDS ORDERED: D5W IV SCH (18:00)
[2017-10-23] MEDS ORDERED: [UNRECOGNIZED DRUG - OTHER] IV SCH (18:00)
[2017-10-23] MEDS ORDERED: DEXTROSE IV SCH (18:00)
[2017-10-23] MEDS ORDERED: Potassium Chloride 10 MEQ Tab.ER PO SCH (18:00)
[2017-10-23] MEDS ORDERED: DOBUTAMINE IV SCH (18:00)
[2017-10-23] MEDS: Potassium Chloride 10 MEQ Tab.ER PO SCH (18:27)
[2017-10-23] MEDS: DEXTROSE IV SCH (18:31)
[2017-10-23] MEDS: DOBUTAMINE IV SCH (18:31)
[2017-10-23] MEDS ORDERED: Midodrine 2.5 MG Tab PO SCH (20:00)
[2017-10-23] MEDS ORDERED: prednisoLONE Acetate 1% Ophth Susp 5 ML Bottle EYEBOTH SCH (20:00)
[2017-10-23] MEDS ORDERED: IPRATROPIUM NAS SCH (20:00)
[2017-10-23] MEDS: Midodrine 2.5 MG Tab PO SCH (20:20)
[2017-10-23] MEDS: IPRATROPIUM NAS SCH (20:24)
[2017-10-24] MEDS: Levothyroxine 50 MCG Tab PO SCH (06:30)
[2017-10-24] MEDS ORDERED: Levothyroxine 50 MCG Tab PO SCH (07:00)
[2017-10-24] MEDS: Midodrine 2.5 MG Tab PO SCH ×3 (07:34→20:53)
[2017-10-24] MEDS: Aspirin 81 MG Tab.EC PO SCH (07:34)
[2017-10-24] MEDS: Potassium Chloride 10 MEQ Tab.ER PO SCH ×2 (07:34→17:19)
[2017-10-24] MEDS: IPRATROPIUM NAS SCH ×3 (07:35→20:56)
[2017-10-24] MEDS: predniSONE 5 MG Tab PO SCH (07:35)
[2017-10-24] MEDS: Docusate Sodium 100 MG Cap PO SCH (07:35)
[2017-10-24] MEDS: Metolazone 2.5 MG Tab PO SCH (07:35)
[2017-10-24] MEDS: Tiotropium Inhaler 18 MCG Inhalation Powder Cap Kit of 5 INH SCH (07:36)
[2017-10-24] MEDS: prednisoLONE Acetate 1% Ophth Susp 5 ML Bottle**OWN MED EYEBOTH SCH ×4 (07:36→20:56)
[2017-10-24] MEDS ORDERED: Metolazone 2.5 MG Tab PO SCH (08:00)
[2017-10-24] MEDS ORDERED: predniSONE 5 MG Tab PO SCH (08:00)
[2017-10-24] MEDS ORDERED: Aspirin 81 MG Tab.EC PO SCH (08:00)
[2017-10-24] MEDS ORDERED: Tiotropium Inhaler 18 MCG Inhalation Powder Cap Kit of 5 INH SCH (08:00)
[2017-10-24] MEDS ORDERED: Docusate Sodium 100 MG Cap PO SCH (08:00)
[2017-10-24] MEDS: Furosemide 100 MG in Sodium Chloride 0.9% 100 ML IV SCH ×2 (09:10→19:12)
[2017-10-24] MEDS: DOBUTAMINE IV SCH (17:59)
[2017-10-24] MEDS: DEXTROSE IV SCH (17:59)
[2017-10-25] MEDS: Levothyroxine 50 MCG Tab PO SCH (06:18)
[2017-10-25] MEDS: Furosemide 100 MG in Sodium Chloride 0.9% 100 ML IV SCH ×2 (06:20→17:53)
[2017-10-25] MEDS: Aspirin 81 MG Tab.EC PO SCH (07:32)
[2017-10-25] MEDS: Midodrine 2.5 MG Tab PO SCH ×3 (07:32→20:41)
[2017-10-25] MEDS: Tiotropium Inhaler 18 MCG Inhalation Powder Cap Kit of 5 INH SCH (07:33)
[2017-10-25] MEDS: Metolazone 2.5 MG Tab PO SCH (07:33)
[2017-10-25] MEDS: Docusate Sodium 100 MG Cap PO SCH (07:33)
[2017-10-25] MEDS: predniSONE 5 MG Tab PO SCH (07:33)
[2017-10-25] MEDS: Potassium Chloride 10 MEQ Tab.ER PO SCH ×2 (07:33→17:01)
[2017-10-25] MEDS: prednisoLONE Acetate 1% Ophth Susp 5 ML Bottle**OWN MED EYEBOTH SCH ×4 (07:34→20:40)
[2017-10-25] MEDS: IPRATROPIUM NAS SCH (07:35)
[2017-10-25] MEDS: DEXTROSE IV SCH (17:55)
[2017-10-25] MEDS: DOBUTAMINE IV SCH (17:55)
[2017-10-26] MEDS: Furosemide 100 MG in Sodium Chloride 0.9% 100 ML IV SCH (05:48)
[2017-10-26] MEDS: Levothyroxine 50 MCG Tab PO SCH (06:04)
[2017-10-26] MEDS: predniSONE 5 MG Tab PO SCH (07:51)
[2017-10-26] MEDS: Metolazone 2.5 MG Tab PO SCH (07:51)
[2017-10-26] MEDS: Aspirin 81 MG Tab.EC PO SCH (07:52)
[2017-10-26] MEDS: Potassium Chloride 10 MEQ Tab.ER PO SCH ×3 (07:52→13:50)
[2017-10-26] MEDS: Docusate Sodium 100 MG Cap PO SCH (07:52)
[2017-10-26] MEDS: Midodrine 2.5 MG Tab PO SCH ×3 (07:53→20:46)
[2017-10-26] MEDS: prednisoLONE Acetate 1% Ophth Susp 5 ML Bottle**OWN MED EYEBOTH SCH ×4 (07:53→20:48)
[2017-10-26] MEDS: Tiotropium Inhaler 18 MCG Inhalation Powder Cap Kit of 5 INH SCH (07:54)
[2017-10-26 09:04] LABS: ANION GAP 11.6 mmol/L (10-20)
[2017-10-26] MEDS ORDERED: Spironolactone 25 MG Tab PO ONE (09:27)
[2017-10-26] MEDS ORDERED: Potassium Chloride 10 MEQ Tab.ER PO SCH (09:30)
--- NOTE | 2017-10-26 09:34 | PCM.SN ---
- Free Text/Narrative Note: LFTs and Cr actually improved. Potassium down to 2.6 will replace orally and give a dose of Aldactone 12.5. He got 20 this AM will get another 120 today and repeat in the AM. Hold further metolozone for now. Lasix drip already stopped and Turosemide not due until 4 pm.
--- NOTE | 2017-10-26 09:51 | PN ---
Progress Note for FREIDA SHAVER Date: 10/26/2017 Room #: VM.218 SUBJECTIVE: This is a 77-year-old originally put on swing bed for end of life cares last week. He has severe heart failure end stage, EF 15%. He was not perfusing. He had cool extremities. Liver enzymes were over 2000. Kidney function was worsening. We had discussed in consultation with the [facility] as well. He elected to stay in-house for comfort measures, mainly the IV Lasix drip. He was getting oral metolazone 2.5 daily. Today, he has lost now almost 22 pounds since admission. He is feeling much better. He is having less shortness of breath, but does feel unsteady when getting up. He is not lightheaded. He is not having any pain or cough. OBJECTIVE: Vital Signs: His weight is 88.5 kg, temperature 97.6, pulse 84, blood pressure 114/66, respiratory rate 16, and O2 97% on 2 L. General: He is in no acute distress. Heart: Regular rate and rhythm. Lungs: Sounds are clear to auscultation bilaterally without crackles or wheezes. Abdomen: Nondistended, nontender. Extremities: Extremities are cool. They do have a darker appearance, but no edema. Mental Status: Alert and orientated x3. ASSESSMENT AND PLAN: 1. Acute on chronic combined systolic and diastolic heart failure exacerbation. EF 15%. The patient has had significant diuresis. He is feeling better. At this point, discussed with the patient, he is not end of life currently, but he is definitely on palliative treatments, would like to consider going home. He is on the dobutamine infusion 5 mcg/kg per minute and will continue with the same, but we will stop his Lasix drip and switch him over to oral torsemide 100 mg twice daily. Continue the metolazone 2.5 daily. Get lab work today to check kidney function. 2. Acute renal failure due to cardiorenal syndrome. The patient is aware that his kidney function may have worsened. 3. Recurrent ventricular tachycardia due to heart failure. He has an ICD in place. It is turned to the lowest settings. 4. Thrombocytopenia due to heart failure. 5. Hypothyroidism. 6. Adjustment disorder due to medical illness. 7. Irw-YL-tnuxjbaag myocardial infarction and palliative treatments. 8. Chronic obstructive pulmonary disease, stable. 9. History of aspiration. He is eating a diet of his choosing. Prednisone is now down to 5 mg daily. 10.Gastroesophageal reflux disease. PLAN: The patient will continue on swing bed cares, but since he is stabilized medically and is not acutely dying, we will get therapies involved again. The patient is agreeable to this plan. MKA: 10/26/2017 08:19:11 MODL: 10/26/2017 09:30:47 /[id number]
[2017-10-26] MEDS: Torsemide 20 MG Tab PO SCH (13:49)
[2017-10-26] MEDS: D5W IV SCH (17:52)
[2017-10-26] MEDS: DOBUTAMINE IV SCH ×2 (17:52→17:58)
[2017-10-26] MEDS: DEXTROSE IV SCH (17:58)
[2017-10-26] MEDS: Potassium Chloride 10% 20 MEQ/15 ML Soln 15 ML UD Cup PO SCH (20:45)
[2017-10-27] MEDS: Levothyroxine 50 MCG Tab PO SCH (06:17)
[2017-10-27] MEDS: Torsemide 20 MG Tab PO SCH ×2 (07:44→14:34)
[2017-10-27] MEDS: Aspirin 81 MG Tab.EC PO SCH (07:44)
[2017-10-27] MEDS: Potassium Chloride 10% 20 MEQ/15 ML Soln 15 ML UD Cup PO SCH ×2 (07:44→14:21)
[2017-10-27] MEDS: Midodrine 2.5 MG Tab PO SCH ×3 (07:45→19:47)
[2017-10-27] MEDS: predniSONE 5 MG Tab PO SCH (07:45)
[2017-10-27] MEDS: Docusate Sodium 100 MG Cap PO SCH (07:45)
[2017-10-27] MEDS: Tiotropium Inhaler 18 MCG Inhalation Powder Cap Kit of 5 INH SCH (07:45)
[2017-10-27] MEDS: prednisoLONE Acetate 1% Ophth Susp 5 ML Bottle**OWN MED EYEBOTH SCH ×4 (07:46→19:48)
[2017-10-27] MEDS: Omeprazole 20 MG Cap.CR PO SCH (09:24)
[2017-10-27] MEDS: Spironolactone 25 MG Tab PO SCH (09:25)
[2017-10-27] MEDS ORDERED: Potassium Chloride 20 MEQ Packet PO SCH (14:18)
[2017-10-27] MEDS: Potassium Chloride 20 MEQ Packet PO SCH ×2 (14:34→19:46)
[2017-10-27] MEDS: D5W IV SCH (18:12)
[2017-10-27] MEDS: DOBUTAMINE IV SCH (18:12)
[2017-10-28] MEDS: Omeprazole 20 MG Cap.CR PO SCH (06:19)
[2017-10-28] MEDS: Levothyroxine 50 MCG Tab PO SCH (06:19)
[2017-10-28] MEDS: Aspirin 81 MG Tab.EC PO SCH (07:47)
[2017-10-28] MEDS: Torsemide 20 MG Tab PO SCH ×2 (07:47→14:30)
[2017-10-28] MEDS: Potassium Chloride 20 MEQ Packet PO SCH ×3 (07:49→19:51)
[2017-10-28] MEDS: Spironolactone 25 MG Tab PO SCH (07:50)
[2017-10-28] MEDS: Docusate Sodium 100 MG Cap PO SCH (07:50)
[2017-10-28] MEDS: predniSONE 5 MG Tab PO SCH (07:51)
[2017-10-28] MEDS: Midodrine 2.5 MG Tab PO SCH ×3 (07:51→19:51)
[2017-10-28] MEDS: prednisoLONE Acetate 1% Ophth Susp 5 ML Bottle**OWN MED EYEBOTH SCH ×4 (07:53→19:53)
[2017-10-28] MEDS: Tiotropium Inhaler 18 MCG Inhalation Powder Cap Kit of 5 INH SCH (07:53)
[2017-10-28] MEDS: D5W IV SCH ×2 (12:18→18:00)
[2017-10-28] MEDS: DOBUTAMINE IV SCH ×2 (12:18→18:00)
[2017-10-29] MEDS: Levothyroxine 50 MCG Tab PO SCH (06:12)
[2017-10-29] MEDS: Omeprazole 20 MG Cap.CR PO SCH (06:12)
[2017-10-29] MEDS: Torsemide 20 MG Tab PO SCH ×2 (08:38→09:52)
[2017-10-29] MEDS: Spironolactone 25 MG Tab PO SCH ×2 (09:13→09:51)
[2017-10-29] MEDS: Docusate Sodium 100 MG Cap PO SCH (09:13)
[2017-10-29] MEDS: Aspirin 81 MG Tab.EC PO SCH (09:13)
[2017-10-29] MEDS: Midodrine 2.5 MG Tab PO SCH ×3 (09:13→20:17)
[2017-10-29] MEDS: Tiotropium Inhaler 18 MCG Inhalation Powder Cap Kit of 5 INH SCH (09:14)
[2017-10-29] MEDS: predniSONE 5 MG Tab PO SCH (09:14)
[2017-10-29] MEDS: prednisoLONE Acetate 1% Ophth Susp 5 ML Bottle**OWN MED EYEBOTH SCH ×4 (09:14→20:18)
[2017-10-29] MEDS: Potassium Chloride 20 MEQ Packet PO SCH ×5 (09:15→20:17)
--- NOTE | 2017-10-29 13:48 | PN ---
Progress Note for FREIDA SHAVER Date: 10/29/2017 Room #: VM.218 SUBJECTIVE: This is a 77-year-old on swing bed for further PT after an acute stay for systolic heart failure, EF 15%. The patient diuresed another 4 L yesterday despite not even trying, with the fact that we decreased his dose of torsemide to 80 b.i.d. Unfortunately, his potassium continues to be low despite Aldactone and 120 mEq of replacement. Magnesium is normal. He states he is a little lightheaded, but no worse than he has been in the past. He is feeling better with his breathing. Weight is down to 88.2 kg. He is very hopeful to return home tomorrow. Dobutamine infusion should be arriving from [place]. We are adjusting it back to his current weight as he has lost at least 22 pounds. OBJECTIVE: Vital Signs: Today; temperature 97.8, pulse 88, blood pressure 117/71, respiratory rate 20, and O2 of 99 on 2 L. General: He is in no acute distress. Heart: Regular rate and rhythm. S1, S2 without murmur. Lungs: Sounds are clear to auscultation bilaterally without crackles or wheezes. Abdomen: Nondistended and nontender. Extremities: No edema. Mental Status: Alert and orientated x3. ASSESSMENT: 1. Ebhmd-dn-kelvfik combo systolic-diastolic heart failure exacerbation. Diuresing significantly. We will stop his torsemide for today's manager people dose and decrease his afternoon dose to 60 mg, due to low potassium, and I am increasing the Aldactone to 25 mg. 2. Hypokalemia, severe. We will increase him to 160 mEq of potassium per day. Recheck tomorrow. 3. Acute renal failure due to cardiorenal syndrome. His renal function is improving. I feel this is another reason why he is losing quite a bit of potassium. 4. Recurrent ventricular tachycardia. He has an ICD in place with a burst pacing available. 5. Thrombocytopenia due to heart failure. He is not having any bleeding problems. 6. Hypothyroidism. 7. Adjustment disorder due to medical illness. Mood seemed to be improving with the outlook of going home. 8. Kzt-AV-alujhvdql myocardial infarction due to heart failure. He is on palliative treatments. 9. Chronic obstructive pulmonary disease, stable without exacerbation. 10.History of aspiration. He is on tapering doses of prednisone for lung infiltrates, 5 mg. We will further taper him to 4 mg today and 2.5 mg daily for one more week and then stop. 11.Gastroesophageal reflux disease. He has been on Prilosec daily. Just this week, we will change to p.r.n. on discharge. He is not specifically having any symptoms, but more so for stress ulcer prophylaxis. PLAN: At this point, the patient will be likely discharged home tomorrow on dobutamine infusion of 5 mcg/kg/minute and adjustments to diuretics with plan for repeat potassium, check Thursday. He declined home health. He wants to be out and doing things he enjoys at this point. He also declines hospice. MKA: 10/29/2017 13:15:21 MODL: 10/29/2017 13:42:03 /[id number]
[2017-10-29] MEDS ORDERED: Spironolactone 25 MG Tab PO ONE (14:35)
[2017-10-29] MEDS: DOBUTAMINE IV SCH (18:09)
[2017-10-29] MEDS: D5W IV SCH (18:09)
[2017-10-30 06:02] VITALS: BP 103/65
[2017-10-30] MEDS: Omeprazole 20 MG Cap.CR PO SCH (06:17)
[2017-10-30] MEDS: Levothyroxine 50 MCG Tab PO SCH (06:17)
[2017-10-30 07:48] LABS: ANION GAP 12.4 mmol/L (10-20)
[2017-10-30] MEDS ORDERED: predniSONE 1 MG Tab PO SCH (08:00)
[2017-10-30] MEDS: Potassium Chloride 20 MEQ Packet PO SCH (08:23)
[2017-10-30] MEDS: Spironolactone 25 MG Tab PO SCH (08:24)
[2017-10-30] MEDS: Docusate Sodium 100 MG Cap PO SCH (08:24)
[2017-10-30] MEDS: Midodrine 2.5 MG Tab PO SCH ×2 (08:25→13:16)
[2017-10-30] MEDS: prednisoLONE Acetate 1% Ophth Susp 5 ML Bottle**OWN MED EYEBOTH SCH ×2 (08:25→13:17)
[2017-10-30] MEDS: Aspirin 81 MG Tab.EC PO SCH (08:25)
[2017-10-30] MEDS: Tiotropium Inhaler 18 MCG Inhalation Powder Cap Kit of 5 INH SCH (08:26)
[2017-10-30] MEDS: Torsemide 20 MG Tab PO SCH (13:16)
[2017-10-30] MEDS ORDERED: Ondansetron 4 MG Tab.DIS PO PRN (13:18)
[2017-10-30] MEDS ORDERED: Calcium Carbonate 750 MG Tab.Chew PO PRN (13:18)
[2017-10-30] MEDS ORDERED: Potassium Chloride 20 MEQ Packet PO SCH ×2 (20:00)
--- NOTE | 2017-10-30 22:47 | PCM.DCSUM1 ---
Discharge Summary - Hospital Course Free Text/Narrative:: Patient transitioned over to swing bed for end of life care on 10/23/17 with comfort measures due to systolic CHF with EF of 15 % He had cool extremities and lfts over 1999 with increasing creatinine He was on a lasix drip and I added oral metalozone. He received his new shipment of dobutamine at an increased dose due to weight gain. He was supposed to be on 5 mcg/kg/min however he had gained over 20 lbs. Over the weekend he did well and started diuresing for 22 lbs and he was not felt to be terminal so we changed him to swing bed for skilled therapy and he did well was up working with them during the weekend and stable for d/c. Kidney function improved and potassium was low due to diuresis so this was replaced and Metalozone was stopped and Aldactone started. [facility] was updated of the patients planned discharge. ICD was adjusted to give only 1 shock on the lowest rate to avoid terminal shocks but he still has pacing out of Vtach capacity. He had some stomach upset on the day of discharge some pop helped but then he ate after that he tried some zofran and tums because he felt queezy. He did not feel like he wanted a script for nausea meds on discharge. He had no vomiting like he had on his initial acute care admission. HPI Initial Comments: Patient admitted to swing bed after an acute stay for CHF. - Discharge Data Discharge Date: 10/30/17 Discharge Disposition: Home, Self-Care 01 Condition: Fair - Discharge Diagnosis/Problem(s) (1) CHF exacerbation SNOMED Code(s): 47223356 ICD Code: I50.9 - HEART FAILURE, UNSPECIFIED Status: Acute Qualifiers: Heart failure type: combined systolic and diastolic Qualified Code(s): I50.43 - Acute on chronic combined systolic (congestive) and diastolic ( congestive) heart failure (2) Elevated liver enzymes SNOMED Code(s): 539800151 ICD Code: R74.8 - ABNORMAL LEVELS OF OTHER SERUM ENZYMES Status: Acute (3) Hypokalemia SNOMED Code(s): 07927383 ICD Code: E87.6 - HYPOKALEMIA Status: Acute (4) SOB (shortness of breath) SNOMED Code(s): 773564233 ICD Code: R06.02 - SHORTNESS OF BREATH Status: Acute (5) Thrombocytopenia SNOMED Code(s): 482411437 ICD Code: D69.6 - THROMBOCYTOPENIA, UNSPECIFIED Status: Acute (6) GERD (gastroesophageal reflux disease) SNOMED Code(s): 784719324 ICD Code: K21.9 - GASTRO-ESOPHAGEAL REFLUX DISEASE WITHOUT ESOPHAGITIS Status: Chronic Qualifiers: Esophagitis presence: esophagitis presence not specified Qualified Code(s) : K21.9 - Gastro-esophageal reflux disease without esophagitis (7) Hypertension SNOMED Code(s): 69464001 ICD Code: I10 - ESSENTIAL (PRIMARY) HYPERTENSION Status: Chronic (8) Hypothyroidism SNOMED Code(s): 27128012 ICD Code: E03.9 - HYPOTHYROIDISM, UNSPECIFIED Status: Chronic Qualifiers: Hypothyroidism type: acquired Qualified Code(s): E03.9 - Hypothyroidism, unspecified (9) Systolic heart failure SNOMED Code(s): 334896849 ICD Code: I50.20 - UNSPECIFIED SYSTOLIC (CONGESTIVE) HEART FAILURE Status: Chronic (10) Ventricular tachycardia SNOMED Code(s): 28720479, 08962224 ICD Code: I47.2 - VENTRICULAR TACHYCARDIA Status: Chronic - Patient Summary/Data Consults: Consultations 10/26/17 08:15 OT Evaluation and Treatment [CONS] Routine PT Evaluation and Treatment [CONS] Routine Hospital Course: see above - Patient Instructions Diet: Usual Diet as Tolerated Fluid Restriction: 2000 mL Activity: As Tolerated Notify Provider of: Fever, Increased Pain, Nausea and/or Vomiting - Discharge Plan Prescriptions/Med Rec: Calcium Carbonate [Tums Extra Strength] 750 mg PO Q2H PRN #30 tab.chew PRN Reason: Dyspepsia Potassium Chloride [Klor-Con] 20 meq PO DAILY #30 packet predniSONE [Prednisone] 2.5 mg PO DAILY #7 tablet Spironolactone [Aldactone] 25 mg PO DAILY #30 tablet Torsemide [Demadex] 60 mg PO BID@0800,1400 #60 tablet Home Medications: Home Meds Aspirin [Key Chewable Aspirin] 81 mg PO DAILY 10/31/14 [History] Docusate Sodium [Colace] 100 mg PO DAILY PRN 10/31/14 [History] Sennosides/Docusate Sodium [Senna-Docusate Sodium] 1 tab PO BID 10/31/14 [ History] Albuterol [IJD: Albuterol HFA] 1 gm INH Q4H PRN #1 inhaler 04/01/16 [Rx] Tiotropium [Spiriva HandiHaler] 18 mcg INH DAILY #30 cap 04/01/16 [Rx] Levothyroxine 50 mcg PO ACBREAKFAST 12/18/16 [History] Midodrine 5 mg PO TID 06/30/17 [History] Acetaminophen [Tylenol] 650 mg PO Q6H PRN 10/17/17 [History] DOBUTamine/Dextrose 5%-Water [DOBUTamine in D5W 250 MG/250 ML] 250 mg IV DAILY@ 18 10/17/17 [History] Ipratropium [Atrovent 0.06% Nasal Delta] 2 sprays MARGARITO TID 10/17/17 [History] Non-Formulary Medication [NF Drug] 1 drop EYEBOTH QID 10/17/17 [History] Omeprazole Magnesium [Prilosec Otc] 20 mg PO DAILY PRN 10/17/17 [History] predniSONE [Prednisone] 5 mg PO DAILY 10/17/17 [History] Fluticasone Furoate [Flonase Sensimist] 1 spray NASBOTH DAILY PRN 10/23/17 [ History] Calcium Carbonate [Tums Extra Strength] 750 mg PO Q2H PRN #30 tab.chew 10/30/17 [Rx] Potassium Chloride [Klor-Con] 20 meq PO DAILY #30 packet 10/30/17 [Rx] Spironolactone [Aldactone] 25 mg PO DAILY #30 tablet 10/30/17 [Rx] Torsemide [Demadex] 60 mg PO BID@0800,1400 #60 tablet 10/30/17 [Rx] predniSONE [Prednisone] 2.5 mg PO DAILY #7 tablet 10/30/17 [Rx] - Discharge Summary/Plan Comment DC Time >30 min.: Yes Discharge Summary/Plan Comment: Recheck on 11/[address] Mcarthur at 1 pm Lab work for a potassium and kidney check on Thursday or Thursday No home health as discussed Continue the dobumatimin infusions 5 mcg/kg/min they should be delivered by the [place] like before Aldactone to continue 25 mg daily on discharge if breast swelling let me know Turosemide 60 mg twice daily on discharge Potassium to continue 20 meq daily Prednisone down to 2.5 mg daily for 1 more week and stop d/c weight is 86.3 kg - General Info Date of Service: 10/30/17 Functional Status: Reports: Pain Controlled - Review of Systems General: Reports: Fatigue HEENT: Reports: No Symptoms Pulmonary: Reports: Shortness of Breath. Denies: Cough Cardiovascular: Reports: Dyspnea on Exertion. Denies: Chest Pain, Palpitations Gastrointestinal: Reports: Nausea, Other (bowels maybe a little slower). Denies : Abdominal Pain, Constipation, Diarrhea, Vomiting Genitourinary: Reports: No Symptoms Musculoskeletal: Reports: No Symptoms Skin: Reports: No Symptoms Neurological: Reports: Dizziness. Denies: Syncope, Difficulty Walking Psychiatric: Reports: No Symptoms. Denies: Confusion - Patient Data Vitals - Most Recent: Last Vital Signs Temp 97.3 F 10/30/17 05:59 Pulse 73 10/30/17 05:59 Resp 20 10/30/17 05:59 BP 103/65 10/30/17 05:59 Pulse Ox 98 10/30/17 07:36 Weight - Most Recent: 86.364 kg I&O - Last 24 hours: Intake & Output 10/30/17 10/30/17 10/30/17 06:59 14:59 22:59 Intake Total 911 Output Total 2100 Balance -1189 Lab Results - Last 24 hrs: Laboratory Results - last 24 hr 10/30/17 Range/Units 07:02 Sodium 135 L (136-145) mmol/L Potassium 4.4 D (3.5-5.1) mmol/L Chloride 100 (98-107) mmol/L Carbon Dioxide 27 (21-32) mmol/L Anion Gap 12.4 (10-20) mmol/L BUN 46 H (7-18) mg/dL Creatinine 1.5 H (0.70-1.30) mg/dL Est Cr Clr Drug Dosing 47.35 mL/min Estimated GFR (MDRD) 46 Glucose 109 H (74-106) mg/dL Calcium 8.5 (8.5-10.1) mg/dL Med Orders - Current: Current Medications Discontinued Medications Acetaminophen (Tylenol) 650 mg PO Q6H PRN PRN Reason: Pain Albuterol (Proventil Neb Soln) 2.5 mg INH Q4H PRN PRN Reason: Cough Aspirin (Halfprin) 81 mg PO DAILY [facility] Last Admin: 10/30/17 08:25 Dose: 81 mg Calcium Carbonate/Glycine (Tums Extra Strength) 750 mg PO Q2H PRN PRN Reason: Dyspepsia Last Admin: 10/30/17 14:03 Dose: 750 mg Docusate Sodium (Colace) 100 mg PO DAILY [facility] Last Admin: 10/30/17 08:24 Dose: 100 mg Furosemide 100 mg/ Sodium (Chloride) 110 mls @ 10 mls/hr IV TITRATE [facility]; Protocol Last Admin: 10/26/17 05:48 Dose: 9.09 mg/hr, 10 mls/hr Dobutamine HCl 800 mg/ (Dextrose/Water) 400 mls @ 13.3 mls/hr IV DAILY@1800 [facility] Last Admin: 10/27/17 18:12 Dose: 14.5 mls/hr Dobutamine HCl 800 mg/ (Dextrose/Water) 400 mls @ 13.3 mls/hr IV DAILY@1800 [facility] Last Admin: 10/29/17 18:09 Dose: 13.3 mls/hr Levothyroxine Sodium (Synthroid) 50 mcg PO ACBREAKFAST [facility] Last Admin: 10/30/17 06:17 Dose: 50 mcg Lorazepam (Ativan) 0.5 mg PO BEDTIME PRN PRN Reason: Anxiety Last Admin: 10/25/17 20:41 Dose: 0.5 mg Lorazepam (Ativan) 0.25 mg IVPUSH Q4H PRN PRN Reason: Anxiety Metolazone (Zaroxolyn) 2.5 mg PO DAILY [facility] Last Admin: 10/26/17 07:51 Dose: 2.5 mg Midodrine (Midodrine) 5 mg PO TID [facility] Last Admin: 10/30/17 13:16 Dose: 5 mg Morphine Sulfate (Morphine) 1 - 2 mg IVPUSH Q30M PRN PRN Reason: Shortness of Breath Dobutamine In D5w 2000 Mcg/Ml 370 Ml Bag Own Med 0 mg IV DAILY@18 [facility] Stop: 10/26/17 18:01 Last Admin: 10/26/17 17:58 Dose: Not Given Ipratropium [ Atrovent 0.06% Nasal Delta] 0 sprays MARGARITO TID [facility] Last Admin: 10/25/17 07:35 Dose: Not Given Flonase Sensimist ( (Own Supply)) 1 spray NASBOTH DAILY PRN PRN Reason: Congestion Last Admin: 10/24/17 07:35 Dose: 1 spray Omeprazole (Omeprazole) 20 mg PO DAILY PRN PRN Reason: Heartburn Omeprazole (Omeprazole) 20 mg PO ACBRK [facility] Last Admin: 10/30/17 06:17 Dose: 20 mg Ondansetron HCl (Zofran) 4 mg IVPUSH Q4H PRN PRN Reason: Nausea Ondansetron HCl (Zofran Odt) 4 mg PO Q6H PRN PRN Reason: Nausea/Vomiting Last Admin: 10/30/17 14:03 Dose: 4 mg Potassium Chloride (Klor-Con 10) 20 meq PO BIDMEALS [facility] Last Admin: 10/26/17 07:52 Dose: 20 meq Potassium Chloride (Klor-Con 10) 40 meq PO TID [facility] Potassium Chloride (Klor-Con 10) 40 meq PO TID@0800,1400,2000 [facility] Last Admin: 10/26/17 13:50 Dose: 40 meq Potassium Chloride (Potassium Chloride Solution) 40 meq PO TID@0800,1400,2000 [facility] Last Admin: 10/27/17 14:21 Dose: Not Given Potassium Chloride (Klor-Con) 40 meq PO TID [facility] Last Admin: 10/27/17 14:22 Dose: Not Given Potassium Chloride (Klor-Con) 40 meq PO TID@08,14,20 [facility] Last Admin: 10/29/17 09:52 Dose: Not Given Potassium Chloride (Klor-Con) 40 meq PO QID [facility] Last Admin: 10/30/17 08:23 Dose: 40 meq Potassium Chloride (Klor-Con) 40 meq PO BID [facility] Potassium Chloride (Klor-Con) 20 meq PO BID [facility] Potassium Chloride (Klor-Con) 20 meq PO DAILY [facility] Prednisolone Acetate (Pred Forte 1% Ophth Susp) 0 ml EYEBOTH QID [facility] Last Admin: 10/30/17 13:17 Dose: 1 drop Prednisone (Prednisone) 5 mg PO DAILY [facility] Last Admin: 10/29/17 09:14 Dose: 5 mg Prednisone (Prednisone) 4 mg PO DAILY [facility] Last Admin: 10/30/17 08:24 Dose: 4 mg Senna/Docusate Sodium (Senna Plus) 1 tab PO BID [facility] Last Admin: 10/30/17 08:24 Dose: 1 tab Sodium Chloride (Saline Flush) 10 ml FLUSH ASDIRECTED PRN PRN Reason: Keep Vein Open Spironolactone (Aldactone) 12.5 mg PO ONETIME ONE Stop: 10/26/17 09:28 Last Admin: 10/26/17 09:51 Dose: 12.5 mg Spironolactone (Aldactone) 12.5 mg PO DAILY [facility] Last Admin: 10/29/17 09:51 Dose: Not Given Spironolactone (Aldactone) 25 mg PO DAILY [facility] Last Admin: 10/30/17 08:24 Dose: 25 mg Spironolactone (Aldactone) 12.5 mg PO ONETIME ONE Stop: 10/29/17 14:36 Last Admin: 10/29/17 15:39 Dose: 12.5 mg Tiotropium [place] (Spiriva Handihaler) 18 mcg INH DAILY [facility] Last Admin: 10/30/17 08:26 Dose: 18 mcg Torsemide (Demadex) 100 mg PO BID@0800,1400 [facility] Last Admin: 10/28/17 07:47 Dose: 100 mg Torsemide (Demadex) 80 mg PO BID@0800,1400 [facility] Last Admin: 10/29/17 09:52 Dose: Not Given Torsemide (Demadex) 60 mg PO BID@0800,1400 [facility] Last Admin: 10/30/17 13:16 Dose: 60 mg - Exam General: Reports: Alert, Oriented Neck: Reports: Supple, No JVD Lungs: Reports: Clear to Auscultation, Normal Respiratory Effort Cardiovascular: Reports: Regular Rate, Regular Rhythm, No Murmurs GI/Abdominal Exam: Normal Bowel Sounds, No Distention, Hernia (groin) Extremities: Normal Inspection, Non-Tender, No Pedal Edema Skin: Reports: Warm, Dry Psy/Mental Status: Reports: Alert, Normal Affect, Normal Mood
[2017-10-31] MEDS ORDERED: Potassium Chloride 20 MEQ Packet PO SCH (08:00)
== END 2017-10-30 15:15 | disposition home or self-care (01) | DRG 292 ==
LOC: VM.MS 11:49
PROVIDERS: ADMIT Internal Medicine; ATTEND Internal Medicine
DX: I11.0 Hypertensive heart disease with heart failure (principal); I47.2 Ventricular tachycardia; N17.9 Acute kidney failure, unspecified; I50.43 Acute on chronic combined systolic (congestive) and diastolic (congestive) heart failure; R94.5 Abnormal results of liver function studies; E87.6 Hypokalemia; D69.6 Thrombocytopenia, unspecified; K21.9 Gastro-esophageal reflux disease without esophagitis; E03.9 Hypothyroidism, unspecified; K59.00 Constipation, unspecified; J44.9 Chronic obstructive pulmonary disease, unspecified; Z95.810 Presence of automatic (implantable) cardiac defibrillator; Z79.82 Long term (current) use of aspirin; Z79.52 Long term (current) use of systemic steroids; Z79.899 Other long term (current) drug therapy
CPT/HCPCS: 36415; 80048; 80053; 83735; 84132; 85025; 94760; 97116-GP; 97165-GO; 97535-GO; A9270-GY; J1250; J1940; J7050; J7060